=== PATIENT | female | born 1960 | race Caucasian/White ===

== ENCOUNTER 2020-08-01 15:10 | Outpatient (CLI) | payer MEDICARE, MEDICAID, SELFPAY ==
--- NOTE | ~2020-08-01 | US_ITS ---
EXAMINATION: US pelvic complete w TV DATE: 08/01/2020 15:51 INDICATION: Other specified noninflammatory disorders of the vagina. TECHNIQUE: Multiple transabdominal and transvaginal sonographic images of the pelvis were obtained. COMPARISON: None. FINDINGS: TRANSABDOMINAL ULTRASOUND: The uterus is absent. There is no free fluid in the pelvis. TRANSVAGINAL ULTRASOUND: The ovaries are absent. There is no abnormal mass. IMPRESSION: 1. No abnormal mass. 2. Absent uterus and ovaries. Reviewed, dictated and finalized at location A.
== END 2020-08-01 15:11 | disposition home or self-care (01) ==
PROVIDERS: PCP Family Medicine; Visit Provider Obstetrics & Gynecology
DX: N89.8 Other specified noninflammatory disorders of vagina (principal)
CPT/HCPCS: 76830; 76856

== ENCOUNTER 2020-08-17 14:33 | Outpatient (CLI) | payer MEDICARE, MEDICAID, SELFPAY ==
--- NOTE | ~2020-08-17 | DEXA_ITS ---
Bone Density Report Name: Kavya Regan Age: 60 Sex: Female Ethnicity: White Date of : 1960 Indication: postmenopausal; parental hip fracture; prior fracture; hysterectomy; Referring Provider: AMRIT NATHAN Study: Bone densitometry was performed. Exam Date: August 17, 2020 Accession number: [id number] Bone Density: Region BMD T-score Z-score Classification AP Spine (L1-L4) 1.045 0.0 1.5 Normal Femoral Neck (Left) 0.609 -2.2 -0.8 Osteopenia Total Hip (Left) 0.679 -2.2 -1.1 Osteopenia Total Hip Bilateral Avg 0.704 -2.0 -0.9 Osteopenia Femoral Neck (Right) 0.601 -2.2 -0.9 Osteopenia Total Hip (Right) 0.728 -1.8 -0.7 Osteopenia World Health Organization criteria for BMD impression classify patients as: Normal (T-score at or above -1.0), Osteopenia (T-score between -1.0 and -2.5), or Osteoporosis (T-score at or below -2.5). 10-year Fracture Risk(1): Major Osteoporotic Fracture 30% Hip Fracture 2.5% Reported Risk Factors: [place] (), Neck BMD=0.601, BMI=34.0, previous fracture, parental fracture (1) FRAX(R) Version 3.08. Fracture probability calculated for an untreated patient. Fracture probability may be lower if the patient has received treatment. Clinical Information Provided by Patient: Has had a low trauma fracture Parent has had a hip fracture Has used the following medications: Vitamin D, Calcium Has the following medical conditions: Hysterectomy Patient maximum height was 64.5 Menopause Age: 31 No regular weight bearing exercise Drinks caffeinated beverages Onset of menses at age 10 Number of children 0 Impression: The patient has low bone mass, based on the Left Total Hip T-score. The patient has an estimated ten-year risk of hip fracture of 2.5% and an estimated ten-year risk of major fracture of 30%, based on the WHO FRAX algorithm. The patient has risk factors, including: parental hip fracture, previous fracture. Discussion: BONE DENSITY IS LOW AT ONE OR MORE SKELETAL SITES. THE PATIENT'S BMD AND CLINICAL RISK FACTORS CONTRIBUTE TO THIS PATIENT'S INCREASED RISK OF FRACTURE. This patient's lowest T-score is low at one or more skeletal sites. It meets the World Health Organization's (WHO) criteria for ?low bone mass? (T-score between -1.0 and -2.5). The patient's 10-year risk of a major osteoporotic fracture as calculated by FRAX exceeds the threshold where pharmacological therapy is recommended by the National Osteoporosis Foundation (NOF). However, all treatment decisions require clinical judgment and consideration of individual patient factors, including patient preferences, comorbidities, previous drug use, risk factors not captured in the FRAX model (e.g., frailty, falls, vitamin D deficiency, increased bone turnover, interval significant decline in bone density) and poss
--- NOTE | ~2020-08-17 | MM_ITS ---
EXAMINATION: MM screening tata BI w luis alberto HISTORY: Screening TECHNIQUE: Craniocaudal and mediolateral oblique 3-D tomosynthesis images were obtained and synthetic 2-D images were generated. CAD analysis was submitted and interpreted. COMPARISON: No prior mammogram is available for comparison at this institution. BREAST PARENCHYMAL COMPOSITION: There are scattered areas of fibroglandular density. FINDINGS: Focal asymmetry in the subareolar location of the right breast on CC view with adjacent non specific calcifications. There is no evidence of suspicious mass, calcification, or architectural dis tortion to suggest malignancy in either breast. There has been no suspicious interval change. IMPRESSION: 1. Focal asymmetry of the right breast with adjacent nonspecific calcifications. 2. Additional mammographic views and possible breast ultrasound are recommended. BI-RADS Category 0: Incomplete: Needs additional imaging evaluation. Reviewed, dictated and finalized at location A. IMPRESSION: 1. Focal asymmetry of the right breast with adjacent nonspecific calcifications . 2. Additional mammographic views and possible breast ultrasound are recommended . BI-RADS Category 0: Incomplete: Needs additional imaging evaluation.
== END 2020-08-17 14:34 | disposition home or self-care (01) ==
LOC: ANHIMG 14:35
PROVIDERS: PCP Family Medicine; Visit Provider Obstetrics & Gynecology
DX: Z78.0 Asymptomatic menopausal state (principal); Z12.31 Encounter for screening mammogram for malignant neoplasm of breast; M85.80 Other specified disorders of bone density and structure, unspecified site
CPT/HCPCS: 77063; 77067; 77080

== ENCOUNTER → 2020-08-25 16:36 | Outpatient (CLI) | payer MEDICARE, MEDICAID, SELFPAY ==
--- NOTE | ~2020-08-25 | XR_ITS ---
EXAMINATION: XR_[id number]_CR EXAM DATE: 08/25/2020 16:59 INDICATION: Neck pain. Vascular headache. TECHNIQUE: Cervical spine frontal, lateral, lateral swimmers, and open-mouth odontoid projections. There is no prior study for comparison. FINDINGS: There is mild to moderate disc disease C4-7. There is no evidence of acute cervical fractu re. The odontoid process is intact. Pre-dens space is normal. Prevertebral soft tissue is normal. There are no soft tissue abnormalities identified. The vertebral bodies are aligned. There is cer vical facet arthropathy. IMPRESSION: Moderate cervical arthropathy, mild to moderate lower cervical disc disease. Reviewed, dictated and finalized at location A.
== END ==
PROVIDERS: PCP Family Medicine; Visit Provider Family Medicine
DX: G44.1 Vascular headache, not elsewhere classified (principal); M50.30 Other cervical disc degeneration, unspecified cervical region
CPT/HCPCS: 72040

== ENCOUNTER 2020-10-18 12:51 | Emergency (ER) | payer MEDICARE, MEDICAID, SELFPAY ==
--- NOTE | ~2020-10-18 | XR_ITS ---
[XR_RIBSLTCXR1_CR ] INDICATION: Left rib pain. TECHNIQUE: Frontal projection of the upper left ribs, frontal projection of the lower left ribs, obli que projection of all the left ribs, frontal inspiratory chest x-ray for interpretation. FINDINGS: There is an acute sixth rib fracture. Possible seventh rib fracture. There are no soft tiss ue abnormality seen. The lungs are clear. No pneumothorax identified. IMPRESSION: 1: Acute left sixth rib fracture. Reviewed, dictated and finalized at location A. R REPLACER
[2020-10-18 12:56] VITALS: BP 138/64; PULSE 55; RESP 20; TEMP 36.6; O2SAT 100
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
== END 2020-10-18 14:20 | disposition home or self-care (01) ==
PROVIDERS: Emergency Provider Registered Nurse; PCP Family Medicine
DX: S22.32XA Fracture of one rib, left side, initial encounter for closed fracture (principal); X58.XXXA Exposure to other specified factors, initial encounter; K21.9 Gastro-esophageal reflux disease without esophagitis; Z86.73 Personal history of transient ischemic attack (TIA), and cerebral infarction without residual deficits; E03.9 Hypothyroidism, unspecified; F31.9 Bipolar disorder, unspecified
CPT/HCPCS: 71101; 99213; G0463

== ENCOUNTER 2020-11-29 14:38 | Outpatient (CLI) | payer MEDICARE, MEDICAID, SELFPAY ==
--- NOTE | ~2020-11-29 | XR_ITS ---
XR_RIBSBICXR1_CR DATE: 11/29/2020 15:13 INDICATION: Left rib fracture follow-up TECHNIQUE: PA chest. Multiple views of left and right ribs. COMPARISON: 10/18/2020 left ribs FINDINGS: Normal heart size. No hilar or mediastinal enlargement. No pulmonary infiltrate or consolid ation, pleural effusion or pulmonary vascular congestion or pneumothorax. There is some callus formation associated with the minimally displaced anterior left sixth rib fractu re consistent with healing. No other rib fracture is evident. Diffuse osteopenia. Old healed right surgical neck fracture of the right humerus. Osteoarthritis at the glenohumeral joints, greater on the left. Diffuse idiopathic skeletal hyperosto sis of the thoracic and upper lumbar spine. Status post cholecystectomy. IMPRESSION: Healing anterior left sixth rib fracture Diffuse idiopathic skeletal hyperostosis of the thoracolumbar spine Reviewed, dictated and finalized at Location A. Reviewed, dictated and finalized at location A. IER ARTIST
== END 2020-11-29 14:39 | disposition home or self-care (01) ==
LOC: ANHBWCIMG 14:42
PROVIDERS: PCP Family Medicine; Visit Provider Family Medicine
DX: M84.48XA Pathological fracture, other site, initial encounter for fracture (principal); Z90.49 Acquired absence of other specified parts of digestive tract
CPT/HCPCS: 71111

== ENCOUNTER 2021-02-24 12:05 | Outpatient (CLI) | payer MEDICARE, MEDICAID, SELFPAY ==
[2021-02-24 17:38] LABS: Add Urine Microscopic? YES; Appearance Urine Cloudy (Clear); Bilirubin Urine Negative (Negative); Blood Urine Negative (Negative); Color Urine Amber (Yellow); Glucose Urine UA Negative (Negative); Hyaline Casts Urine 50+ /lpf; Ketones Urine Negative (Negative); Leukocyte Esterase Ur Negative LEU/UL (NEGATIVE); Mucus Urine Few /lpf; Nitrate Urine Negative (Negative); Protein Urine 1+ mg/dL (Negative); Specific Grav Ur 1.023 (1.001-1.035); Squamous Epithelial Cell Urine Moderate /hpf (Few); Transitional Epi Cells Urine Rare /hpf (None Seen); Urobilinogen Urine Negative mg/dL (<2.0)
== END 2021-02-24 12:06 | disposition home or self-care (01) ==
PROVIDERS: PCP Family Medicine; Visit Provider Family Medicine
DX: M54.9 Dorsalgia, unspecified (principal); R10.9 Unspecified abdominal pain
CPT/HCPCS: 81001; 87077; 87086; 87088; 87186

== ENCOUNTER 2021-03-03 17:24 | Emergency (ER) | payer MEDICARE, MEDICAID, SELFPAY ==
--- NOTE | ~2021-03-03 | XR_ITS ---
EXAMINATION: XR chest 2V DATE: 03/03/2021 18:40 INDICATION: Upper abdominal pain. TECHNIQUE: PA and lateral views of the chest were obtained. COMPARISON: Chest radiograph dated 11/29/2020 FINDINGS: The lungs are clear with no focal airspace opacities, pulmonary edema, pleural effusion or pneumothor ax. The cardiomediastinal silhouette is normal. There are bridging osteophytes at multiple levels in the spine, consistent with diffuse idiopathic skeletal hyperostosis (DISH). Chronic mild anterior wed ging of a few lower thoracic vertebral bodies. Old healed bilateral humeral neck fractures. Small miya cific density near the apex of the right humeral head suggestive of rotator cuff calcific tendinitis. Cholecystectomy clips in the upper abdomen. IMPRESSION: 1. No acute cardiopulmonary disease. Reviewed, dictated and finalized at location A.
--- NOTE | ~2021-03-03 | CT_ITS ---
EXAMINATION: CT abdomen pelvis w con DATE: 03/03/2021 19:19 INDICATION: Upper abdominal pain TECHNIQUE: Computed tomography (CT) of the abdomen and pelvis was performed with 100 mL Omnipaque-350 intravenous contrast. Automated exposure control and iterative reconstruction technique were employe d. The dose-length product was 901.87 mGy-cm. COMPARISON: None FINDINGS: Lung bases are clear. Heart size is normal. No pericardial effusion. Small sliding-type hiatal hernia with change of prior Cricket-en-Y gastric bypass procedure. Cholecystectomy clips the gallbladder fossa . Liver, spleen, pancreas and bilateral adrenal glands are normal. 1.4 cm cyst at the upper pole of t he right kidney. Small focus of cortical scarring at the upper pole of the left kidney. There is mild colonic diverticulosis with a sigmoid predominance. There is no adjacent inflammatory change to sugg est diverticulitis. The appendix is not visualized. No pericecal inflammatory change to suggest acute appendicitis. No bowel obstruction. Bladder is normal. The uterus is not identified and has likely b een surgically resected. No free intraperitoneal gas or fluid. No pathologically enlarged abdominal o r pelvic lymphadenopathy. There are bridging osteophytes at multiple levels in the spine, consistent with diffuse idiopathic skeletal hyperostosis (DISH). IMPRESSION: 1. No acute intra-abdominal/pelvic process. 2. Small sliding-type hiatal hernia with prior Cricket-en-Y gastric bypass procedure. Reviewed, dictated and finalized at location A. IMPRESSION: 1. No acute intra-abdominal/pelvic process. 2. Small sliding-type hiatal hernia with prior Cricket-en-Y gastric bypass procedu re.
[2021-03-03 17:29] VITALS: BP 147/95; PULSE 75; RESP 20; TEMP 36.6; O2SAT 98
--- NOTE | 2021-03-03 18:07 | ECG_ITS ---
Measurements Intervals [place] Rate: 64 P: 40 UT: 177 QRS: 15 QRSD: 91 T: 55 QT: 411 QTc: 426 Interpretive Statements SINUS RHYTHM BASELINE WANDER- I, III NORMAL ECG Electronically Signed On 03-03-2021 19:30:51 CDT by Greg Aggarwal D.O.
[2021-03-03 18:13] LABS: Basophils Percent Auto 0.4 % (0.2-1.2); Eosinophils Absolute Auto 0.1 K/mm3 (0-0.3); Eosinophils Percent Auto 0.9 % (0-4.4); Hematocrit 41.4 % (37.0-47.0); Hemoglobin 13.9 g/dL (12.0-15.0); Immature Granulocyte Absolute 0.02 K/mm3 (0.00-0.031); Immature Granulocyte Percent A 0.4 % (0-0.5); Lymphocytes Absolute Auto 1.81 K/mm3 (0.9-3.2); Lymphocytes Percent Auto 32.2 % (18.3-44.2); Mean Corpuscular HGB Conc 33.6 g/dl (32-36); Mean Corpuscular Volume 86.4 fl (80-100); Mean Platelet Volume 10.1 fl (7.4-10.4); Monocytes Absolute Auto 0.5 K/mm3 (0.1-0.6); Monocytes Percent Auto 8.4 % (2.6-8.5); Neutrophils Absolute Auto 3.3 K/mm3 (1.3-6.7); Neutrophils Percent Auto 57.7 % (45.5-73.1); Platelet Count Result 249 k/mm3 (150-375); Red Blood Count 4.79 M/mm3 (4.2-5.4); Red Cell Distribution Width 13.1 % (11.5-14.5); White Blood Count 5.6 K/mm3 (4.5-10.0)
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
[2021-03-03 18:22] LABS: Add Urine Microscopic? YES; Appearance Urine Clear (Clear); Bilirubin Urine Negative (Negative); Blood Urine Negative (Negative); Color Urine Yellow (Yellow); Glucose Urine UA Negative (Negative); Ketones Urine Negative (Negative); Leukocyte Esterase Ur Negative LEU/UL (Negative); Mucus Urine Rare /lpf; Nitrate Urine Negative (Negative); Protein Urine Negative (Negative); RBC Urine 0-2 /hpf (0-2); Specific Grav Ur 1.009 (1.001-1.035); Squamous Epithelial Cell Urine Occasional /hpf (Few); Urobilinogen Urine Negative mg/dL (<2.0); WBC Urine 0-3 /hpf
[2021-03-03 18:23] LABS: INR 0.9; Partial Thromboplastin Time 22.2 SECONDS (22.3-36.8); Prothrombin Time 12.2 Seconds (11.1-14.7)
[2021-03-03] MEDS: METOCLOPRAMIDE HCL INJ 10 MG/2 ML VIAL IV PUSH (18:23)
[2021-03-03] MEDS: diphenhydrAMINE HCl INJ 50 MG/ML VIAL 25 MG IV PUSH (18:23)
[2021-03-03] MEDS: FAMOTIDINE 20 MG/2 ML VIAL IV PUSH (18:24)
[2021-03-03 18:31] LABS: Alanine Aminotransferase 17 U/L (4-35); Albumin Level 4.7 g/dL (3.5-5.1); Alkaline Phosphatase 80 U/L (38-126); Anion Gap 6 mmol/L (8-16); Aspartate Amino Transferase 28 U/L (14-36); Bilirubin,Total 0.5 mg/dL (0.2-1.3); Blood Urea Nitrogen 8 mg/dL (7-17); Calcium 9.2 mg/dL (8.4-10.2); Carbon Dioxide 28 mmol/L (22-30); Chloride 97 mmol/L (98-107); Estimated CRCL calculation 68 ml/min; Estimated Glomerular Filt Rate > 60; Glucose 119 mg/dL (65-105); Lipase 1597 U/L (23-300); Sodium 131 mmol/L (137-145)
[2021-03-03 18:38] LABS: Troponin I < 0.012 ng/mL (0.000-0.034)
[2021-03-03 18:40] LABS: Ethanol < 10 mg/dL (<10)
[2021-03-03] MEDS: SODIUM CHLORIDE 0.9% IV 1,000 ML 999 ML IV CONT ×2 (18:44→20:15)
[2021-03-03 18:50] LABS: Amphetamine Screen Urine Negative (Negative); Barbiturate Screen Urine Negative (Negative); Benzodiazepines Screen Urine Negative (Negative); Cannabinoid Screen Urine Negative (Negative); Cocaine Screen Urine Negative (Negative); Methadone Screen Urine Negative (Negative); Opiate Screen Urine Negative (Negative); Phencyclidine Screen Urine Negative (Negative)
[2021-03-03 19:36] VITALS: BP 155/68; PULSE 64; RESP 16; O2SAT 100
[2021-03-03] MEDS: ONDANSETRON INJ 4 MG/2 ML VIAL IV PUSH (20:11)
[2021-03-03] MEDS: MORPHINE SULFATE (*CRX) 4 MG/ML INJ IV PUSH (20:13)
[2021-03-03 20:15] LABS: Triglycerides 177 mg/dL (<150)
[2021-03-03 21:30] VITALS: BP 136/76; PULSE 60; RESP 16; O2SAT 98
== END 2021-03-03 21:35 | disposition home or self-care (01) ==
PROVIDERS: Physician Assistant; Emergency Provider Emergency Medicine; PCP Family Medicine
DX: K85.30 Drug induced acute pancreatitis without necrosis or infection (principal); T36.8X5A Adverse effect of other systemic antibiotics, initial encounter; K21.9 Gastro-esophageal reflux disease without esophagitis; N39.0 Urinary tract infection, site not specified; F31.9 Bipolar disorder, unspecified; Z86.73 Personal history of transient ischemic attack (TIA), and cerebral infarction without residual deficits; E03.9 Hypothyroidism, unspecified; Z96.651 Presence of right artificial knee joint; Z87.891 Personal history of nicotine dependence; Z98.84 Bariatric surgery status; K44.9 Diaphragmatic hernia without obstruction or gangrene; Z79.899 Other long term (current) drug therapy
CPT/HCPCS: 36415; 71046; 74177; 80053; 80307; 81001; 83690; 84443; 84478; 84484; 85025; 85610; 85730; 93005; 96361; 96374; 96375; 99284; J0131; J1200; J2270; J2405; J2765; J7030; Q9967

== ENCOUNTER → 2021-05-12 16:38 | Outpatient (CLI) | payer MEDICARE, MEDICAID, SELFPAY ==
--- NOTE | ~2021-05-12 | XR_ITS ---
[XR ribs LT 2V w CXR 2V ] INDICATION: Left chest pain TECHNIQUE: Frontal projection of the upper left ribs, frontal projection of the lower left ribs, obli que projection of all the left ribs, frontal inspiratory chest x-ray for interpretation. FINDINGS: There are nondisplaced left fifth and sixth rib fractures anteriorly. Possible nondisplace d left fourth rib fracture anteriorly. There are no soft tissue abnormality seen. The lungs are saray r. There is thoracic spondylosis. There are cholecystectomy clips. There is moderate osteoarthritis of the left shoulder. IMPRESSION: 1: Left fifth, sixth and possibly fourth rib fractures, age indeterminate. Reviewed, dictated and finalized at location A.
--- NOTE | ~2021-05-12 | XR_ITS ---
XR knee LT min 4V 05/12/2021 17:16 Indication: Left knee pain after work Procedure: 4 views left knee Comparison: No prior studies for comparison. Findings: No acute fracture is identified. There is a moderate joint effusion. There are loose bodies posterior to the joint space. There is an old lateral tibial plateau fracture. There are possible ol d patellar fracture superiorly versus multi partite patella. There is side plate and screws transfixi ng the proximal tibia. Impression: 1: No acute fracture. 2: Moderate joint effusion. Reviewed, dictated and finalized at location A. Impression: 1: No acute fracture. 2: Moderate joint effusion.
== END ==
PROVIDERS: PCP Family Medicine; Visit Provider Family Medicine
DX: S22.39XA Fracture of one rib, unspecified side, initial encounter for closed fracture (principal); M25.562 Pain in left knee; S22.42XA Multiple fractures of ribs, left side, initial encounter for closed fracture; M25.462 Effusion, left knee
CPT/HCPCS: 71046; 71100; 73564

== ENCOUNTER 2021-06-16 11:48 | Outpatient (CLI) | payer MEDICARE, MEDICAID, SELFPAY ==
[2021-06-16 19:30] LABS: Basophils Percent Auto 0.4 % (0.2-1.2); Eosinophils Absolute Auto 0.1 K/mm3 (0-0.3); Eosinophils Percent Auto 1.3 % (0-4.4); Hemoglobin 12.2 g/dL (12.0-15.0); Immature Granulocyte Absolute 0.02 K/mm3 (0.00-0.031); Immature Granulocyte Percent A 0.3 % (0-0.5); Lymphocytes Absolute Auto 1.39 K/mm3 (0.9-3.2); Lymphocytes Percent Auto 20.4 % (18.3-44.2); Mean Corpuscular HGB Conc 31.3 g/dl (32-36); Mean Corpuscular Volume 92.9 fl (80-100); Mean Platelet Volume 11.2 fl (7.4-10.4); Monocytes Absolute Auto 0.4 K/mm3 (0.1-0.6); Monocytes Percent Auto 6.4 % (2.6-8.5); Neutrophils Absolute Auto 4.9 K/mm3 (1.3-6.7); Neutrophils Percent Auto 71.2 % (45.5-73.1); Platelet Count Result 236 k/mm3 (150-375); Red Cell Distribution Width 12.6 % (11.5-14.5); White Blood Count 6.8 K/mm3 (4.5-10.0)
[2021-06-16 19:36] LABS: Alanine Aminotransferase 31 U/L (4-35); Albumin Level 3.5 g/dL (3.5-5.1); Alkaline Phosphatase 76 U/L (38-126); Anion Gap 6 mmol/L (8-16); Aspartate Amino Transferase 39 U/L (14-36); Bilirubin,Total 0.3 mg/dL (0.2-1.3); Blood Urea Nitrogen 12 mg/dL (7-17); Calcium 9.2 mg/dL (8.4-10.2); Carbon Dioxide 25 mmol/L (22-30); Chloride 107 mmol/L (98-107); Estimated Glomerular Filt Rate > 60; Glucose 94 mg/dL (65-110); Potassium 3.6 mmol/L (3.4-5.0); Sodium 138 mmol/L (137-145)
[2021-06-16 20:06] LABS: Thyroid Stimulating Hormone 0.766 uIU/mL (0.465-4.680)
[2021-06-16 20:33] LABS: Hemoglobin A1C 5.6 % (<5.7)
== END 2021-06-16 11:49 | disposition home or self-care (01) ==
PROVIDERS: PCP Family Medicine; Visit Provider Family Medicine
DX: E03.9 Hypothyroidism, unspecified (principal); F32.9 Major depressive disorder, single episode, unspecified; R73.09 Other abnormal glucose
CPT/HCPCS: 36415; 80053; 83036; 84443; 85025

== ENCOUNTER 2021-07-18 07:34 | Outpatient (CLI) | payer MEDICARE, MEDICAID, SELFPAY ==
[2021-07-18 20:15] LABS: Hematocrit 38.7 % (37.0-47.0); Hemoglobin 12.5 g/dL (12.0-15.0); Mean Corpuscular HGB Conc 32.3 g/dl (32-36); Mean Corpuscular Hemoglobin 29.8 pg (26-34); Mean Corpuscular Volume 92.1 fl (80-100); Platelet Count Result 216 k/mm3 (150-375); Red Cell Distribution Width 13.2 % (11.5-14.5); White Blood Count 6.3 K/mm3 (4.5-10.0)
[2021-07-18 20:23] LABS: Alanine Aminotransferase 10 U/L (4-35); Albumin Level 3.7 g/dL (3.5-5.1); Alkaline Phosphatase 83 U/L (38-126); Anion Gap 10 mmol/L (8-16); Aspartate Amino Transferase 16 U/L (14-36); Bilirubin,Total 0.4 mg/dL (0.2-1.3); Blood Urea Nitrogen 12 mg/dL (7-17); Calcium 9.1 mg/dL (8.4-10.2); Carbon Dioxide 28 mmol/L (22-30); Chloride 104 mmol/L (98-107); Estimated Glomerular Filt Rate > 60; Glucose 114 mg/dL (65-110); Potassium 3.5 mmol/L (3.4-5.0); Sodium 142 mmol/L (137-145)
== END 2021-07-18 07:35 | disposition home or self-care (01) ==
PROVIDERS: PCP Family Medicine; Visit Provider Family Medicine
DX: G25.81 Restless legs syndrome (principal); M79.2 Neuralgia and neuritis, unspecified; R73.09 Other abnormal glucose; Z51.81 Encounter for therapeutic drug level monitoring; Z79.899 Other long term (current) drug therapy; E03.9 Hypothyroidism, unspecified; R79.89 Other specified abnormal findings of blood chemistry
CPT/HCPCS: 36415; 80053; 84443; 85027

== ENCOUNTER 2022-01-02 10:46 | Outpatient (CLI) | payer MEDICARE, MEDICAID, SELFPAY ==
--- NOTE | ~2022-01-02 | XR_ITS ---
XR knee LT min 4V DATE: 01/02/2022 11:08 INDICATION: Twisting injury. Pain. TECHNIQUE: 4 views COMPARISON: 05/12/2021 left knee FINDINGS: Diffuse osteopenia. There is a plate along the proximal tibia extending from the lateral tibial plateau to proximal later al tibial shaft, with multiple transverse compression screws. There is severe osteoarthritic change at the patellofemoral and lateral compartments, previously plac ed for repair of lateral tibial plateau fracture, with some chronic residual depression and cupping d eformity of the lateral tibial plateau articular surface. There is old healed fracture deformity of t he fibular neck. Again noted is a large posterior knee joint calcified loose body. No recent fracture or dislocation is evident. IMPRESSION: Old healed internally fixated lateral tibial plateau and fibular neck fracture deformitie s Osteopenia Prominent osteoarthritis involving particularly the lateral and patellofemoral compartments Reviewed, dictated and finalized at location A. LINER MAKER IMPRESSION: Old healed internally fixated lateral tibial plateau and fibular ne ck fracture deformities Osteopenia Prominent osteoarthritis involving particularly the lateral and patellofemoral compartments
== END 2022-01-02 10:47 | disposition home or self-care (01) ==
LOC: ANHBWCIMG 10:51
PROVIDERS: PCP Family Medicine; Visit Provider Family Medicine
DX: M17.12 Unilateral primary osteoarthritis, left knee (principal); Z98.890 Other specified postprocedural states; M85.862 Other specified disorders of bone density and structure, left lower leg
CPT/HCPCS: 73564

== ENCOUNTER 2022-07-31 15:18 | Outpatient (CLI) | payer MEDICARE, MEDICAID, SELFPAY ==
[2022-07-31 19:55] LABS: Alanine Aminotransferase 14 U/L (6-35); Albumin Level 3.9 g/dL (3.5-5.1); Alkaline Phosphatase 82 U/L (38-126); Anion Gap 9 mmol/L (8-16); Aspartate Amino Transferase 35 U/L (14-36); Bilirubin,Total 0.4 mg/dL (0.2-1.3); Blood Urea Nitrogen 9 mg/dL (7-17); Calcium 8.5 mg/dL (8.4-10.2); Carbon Dioxide 26 mmol/L (22-30); Chloride 99 mmol/L (98-107); Cholesterol 185 mg/dL (0-200); Estimated Glomerular Filt Rate > 60; Glucose 98 mg/dL (65-110); HDL Direct 46 mg/dL; Potassium 4.3 mmol/L (3.4-5.0); Sodium 134 mmol/L (137-145); Triglycerides 114 mg/dL (<150)
[2022-07-31 20:05] LABS: LDL Cholesterol Direct 110 mg/dL
[2022-07-31 20:20] LABS: Basophils Percent Auto 0.4 % (0.2-1.2); Eosinophils Percent Auto 0.7 % (0-4.4); Hematocrit 39.3 % (37.0-47.0); Hemoglobin 12.4 g/dL (12.0-15.0); Immature Granulocyte Absolute 0.01 K/mm3 (0.00-0.031); Immature Granulocyte Percent A 0.2 % (0-0.5); Lymphocytes Absolute Auto 1.29 K/mm3 (0.9-3.2); Mean Corpuscular HGB Conc 31.6 g/dl (32-36); Mean Corpuscular Hemoglobin 28.8 pg (26-34); Mean Corpuscular Volume 91.2 fl (80-100); Mean Platelet Volume 10.6 fl (7.4-10.4); Monocytes Absolute Auto 0.3 K/mm3 (0.1-0.6); Monocytes Percent Auto 5.8 % (2.6-8.5); Neutrophils Absolute Auto 2.8 K/mm3 (1.3-6.7); Neutrophils Percent Auto 63.9 % (45.5-73.1); Platelet Count Result 237 k/mm3 (150-375); Red Blood Count 4.31 M/mm3 (4.2-5.4); Red Cell Distribution Width 13.2 % (11.5-14.5); White Blood Count 4.5 K/mm3 (4.5-10.0)
[2022-07-31 20:24] LABS: Vitamin D 25 Hydroxy 48.9 ng/mL
== END 2022-07-31 15:19 | disposition home or self-care (01) ==
LOC: ANHBWCLAB 15:19
PROVIDERS: PCP Family Medicine; Visit Provider Family Medicine
DX: G44.1 Vascular headache, not elsewhere classified (principal); E03.9 Hypothyroidism, unspecified; E66.9 Obesity, unspecified; F32.9 Major depressive disorder, single episode, unspecified; G25.81 Restless legs syndrome; Z79.899 Other long term (current) drug therapy
CPT/HCPCS: 36415; 80053; 80061; 82306; 82607; 84443; 85025

== ENCOUNTER 2022-09-29 10:01 | Emergency (ER) | payer MEDICARE, MEDICAID, SELFPAY ==
[2022-09-29 10:09] VITALS: BP 132/54; PULSE 73; RESP 16; TEMP 36.6; O2SAT 99
--- NOTE | 2022-09-29 10:10 | PC.NURSE ---
PT ASKING FOR RAPID COVID TEST TO RETURN TO WORK AND REPORTS NO SYMPTOMS. PT DECIDES NOT TO WAIT TO BE SEEN AND WILL GO TO COVID TESTING SITE.
--- NOTE | 2022-09-29 10:10 | PC.NURSE ---
PT IS REQUESTING TO HAVE A RAPID COVID TEST DONE TO GO BACK TO WORK AND DOES NOT WANT TO WAIT.
== END 2022-09-29 10:10 | disposition left against medical advice (07) ==
LOC: EXPBETH 10:05
PROVIDERS: Emergency Provider Registered Nurse; PCP Family Medicine
DX: Z53.21 Procedure and treatment not carried out due to patient leaving prior to being seen by health care provider (principal)
CPT/HCPCS: 99199

== ENCOUNTER 2022-12-11 13:16 | Outpatient (CLI) | payer MEDICARE, MEDICAID, SELFPAY ==
--- NOTE | ~2022-12-11 | XR_ITS ---
Left Knee Technique: AP, lateral, and sunrise views were obtained. Clinical History: Pain COMPARISON: 01/02/2022 Findings: No acute fracture or dislocation seen. Old, healed fracture of the proximal tibia with stab le compression plate and interlocking screws along the proximal, lateral tibia. Moderate lateral and patellofemoral compartment degenerative change present. Mild degenerative change of the medial compar tment present. There is a 2 cm loose body present posteriorly in the joint, similar to prior exam. No joint effusion is seen. Impression: No acute abnormality. Stable orthopedic fixation hardware the proximal tibia. Stable degenerative change of the knee, worst in the lateral and patellofemoral compartments. Stable large intra-articular loose body. Reviewed, dictated and finalized at location . RAFT STEEL FABRICATOR Impression: No acute abnormality. Stable orthopedic fixation hardware the proximal tibia. Stable degenerative change of the knee, worst in the lateral and patellofemoral compartments. Stable large intra-articular loose body.
== END 2022-12-11 13:17 | disposition home or self-care (01) ==
PROVIDERS: PCP Family Medicine; Visit Provider Family Medicine
DX: M25.562 Pain in left knee (principal); M23.42 Loose body in knee, left knee
CPT/HCPCS: 73562

== ENCOUNTER 2023-01-03 11:27 | Outpatient (CLI) | payer MEDICARE, MEDICAID, SELFPAY ==
[2023-01-03 19:34] LABS: Alanine Aminotransferase 28 U/L (6-35); Albumin Level 3.6 g/dL (3.5-5.1); Alkaline Phosphatase 112 U/L (38-126); Anion Gap 3 mmol/L (8-16); Aspartate Amino Transferase 39 U/L (14-36); Bilirubin,Total 0.5 mg/dL (0.2-1.3); Blood Urea Nitrogen 8 mg/dL (7-17); Calcium 8.2 mg/dL (8.4-10.2); Carbon Dioxide 32 mmol/L (22-30); Chloride 103 mmol/L (98-107); Estimated Glomerular Filt Rate > 60; Glucose 77 mg/dL (65-110); Potassium 4.1 mmol/L (3.4-5.0); Sodium 138 mmol/L (137-145)
[2023-01-03 21:10] LABS: Hematocrit 34.8 % (37.0-47.0); Hemoglobin 10.4 g/dL (12.0-15.0); Mean Corpuscular HGB Conc 29.9 g/dl (32-36); Mean Corpuscular Hemoglobin 26.7 pg (26-34); Mean Corpuscular Volume 89.2 fl (80-100); Mean Platelet Volume 10.9 fl (7.4-10.4); Platelet Count Result 228 k/mm3 (150-375); Red Cell Distribution Width 13.7 % (11.5-14.5); White Blood Count 4.3 K/mm3 (4.5-10.0)
== END 2023-01-03 11:28 | disposition home or self-care (01) ==
LOC: ANHBWCLAB 11:28
PROVIDERS: PCP Family Medicine; Visit Provider Family Medicine
DX: F25.9 Schizoaffective disorder, unspecified (principal); F31.81 Bipolar II disorder; G25.81 Restless legs syndrome; M79.2 Neuralgia and neuritis, unspecified; M25.562 Pain in left knee; M85.80 Other specified disorders of bone density and structure, unspecified site; R79.89 Other specified abnormal findings of blood chemistry; E66.9 Obesity, unspecified; E03.9 Hypothyroidism, unspecified; Z79.899 Other long term (current) drug therapy
CPT/HCPCS: 36415; 80053; 84443; 85027

== ENCOUNTER 2023-01-31 11:58 | Outpatient (CLI) | payer MEDICARE, MEDICAID, SELFPAY ==
[2023-01-31 18:47] LABS: Iron 46 ug/dL (37-170)
[2023-01-31 19:08] LABS: Percent Iron Saturation 9 % (20-50)
[2023-01-31 19:28] LABS: Basophils Percent Auto 0.2 % (0.2-1.2); Eosinophils Percent Auto 0.2 % (0-4.4); Hematocrit 38.3 % (37.0-47.0); Hemoglobin 11.5 g/dL (12.0-15.0); Immature Granulocyte Absolute 0.02 K/mm3 (0.00-0.031); Immature Granulocyte Percent A 0.4 % (0-0.5); Lymphocytes Absolute Auto 1.13 K/mm3 (0.9-3.2); Lymphocytes Percent Auto 20.2 % (18.3-44.2); Mean Corpuscular Hemoglobin 26.8 pg (26-34); Mean Corpuscular Volume 89.3 fl (80-100); Mean Platelet Volume 10.2 fl (7.4-10.4); Monocytes Absolute Auto 0.5 K/mm3 (0.1-0.6); Monocytes Percent Auto 8.2 % (2.6-8.5); Neutrophils Percent Auto 70.8 % (45.5-73.1); Platelet Count Result 289 k/mm3 (150-375); Red Blood Count 4.29 M/mm3 (4.2-5.4); Red Cell Distribution Width 14.3 % (11.5-14.5); White Blood Count 5.6 K/mm3 (4.5-10.0)
[2023-01-31 19:36] LABS: Ferritin 9.03 ng/mL (11.1-264)
== END 2023-01-31 11:59 | disposition home or self-care (01) ==
PROVIDERS: PCP Family Medicine; Visit Provider Family Medicine
DX: D64.9 Anemia, unspecified (principal); Z79.899 Other long term (current) drug therapy; R79.89 Other specified abnormal findings of blood chemistry
CPT/HCPCS: 36415; 82607; 82728; 83540; 83550; 85025

== ENCOUNTER 2023-03-27 16:57 | Emergency (ER) | payer MEDICARE, MEDICAID, SELFPAY ==
[2023-03-27 17:07] VITALS: BP 89/57; PULSE 98; RESP 18; TEMP 37.1; O2SAT 99
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
[2023-03-27 17:30] VITALS: BP 116/68; PULSE 84
[2023-03-27 17:31] VITALS: BP 115/63; PULSE 96
[2023-03-27 17:32] VITALS: BP 70/47; PULSE 100
[2023-03-27 17:40] VITALS: BP 115/68
--- NOTE | 2023-03-27 20:16 | ECG_ITS ---
Measurements Intervals [place] Rate: 86 P: [place]: 0 QRS: 48 QRSD: 94 T: 56 QT: 360 QTc: 432 Interpretive Statements ATRIAL FIBRILLATION BASELINE ARTIFACT- I, II, III ABNORMAL ECG COMPARED TO ECG 03/03/2021 18:16:32 ATRIAL FIBRILLATION NOW PRESENT Electronically Signed On 03-28-2023 8:07:34 CDT by Greg Aggarwal D.O.
== END 2023-03-27 17:40 | disposition left against medical advice (07) ==
PROVIDERS: Emergency Provider Nurse Practitioner Family; PCP Family Medicine
DX: I48.91 Unspecified atrial fibrillation (principal); M25.561 Pain in right knee; Z87.891 Personal history of nicotine dependence; K21.9 Gastro-esophageal reflux disease without esophagitis; E03.9 Hypothyroidism, unspecified; Z86.73 Personal history of transient ischemic attack (TIA), and cerebral infarction without residual deficits; Z96.651 Presence of right artificial knee joint
CPT/HCPCS: 93005; 99213; G0463

== ENCOUNTER 2023-04-08 10:09 | Outpatient (CLI) | payer OTHER, SELFPAY ==
--- NOTE | ~2023-04-08 | XR_ITS ---
Right Knee Technique: AP, lateral, and sunrise views were obtained. Clinical History: Pain Findings: No fracture or dislocation is seen., Right knee arthroplasty hardware is in place. No hardw are complication is evident. There is prominent heterotopic ossification or possibly loose body poste rior to the distal femoral hardware.. No joint effusion is seen. Impression: No acute reality evident. Prominent heterotopic ossification or possible loose body posterior to the distal femoral hardware. Right knee arthroplasty hardware in place. Reviewed, dictated and finalized at location M. Impression: No acute reality evident. Prominent heterotopic ossification or possible loose body posterior to the dist al femoral hardware. Right knee arthroplasty hardware in place.
[2023-04-08 21:41] LABS: Basophils Percent Auto 0.4 % (0.2-1.2); Eosinophils Percent Auto 0.9 % (0-4.4); Hematocrit 39.1 % (37.0-47.0); Hemoglobin 11.9 g/dL (12.0-15.0); Immature Granulocyte Absolute 0.02 K/mm3 (0.00-0.031); Immature Granulocyte Percent A 0.4 % (0-0.5); Lymphocytes Absolute Auto 0.71 K/mm3 (0.9-3.2); Lymphocytes Percent Auto 15.7 % (18.3-44.2); Mean Corpuscular HGB Conc 30.4 g/dl (32-36); Mean Corpuscular Hemoglobin 27.1 pg (26-34); Mean Corpuscular Volume 89.1 fl (80-100); Mean Platelet Volume 10.6 fl (7.4-10.4); Monocytes Absolute Auto 0.2 K/mm3 (0.1-0.6); Monocytes Percent Auto 5.1 % (2.6-8.5); Neutrophils Absolute Auto 3.5 K/mm3 (1.3-6.7); Neutrophils Percent Auto 77.5 % (45.5-73.1); Platelet Count Result 290 k/mm3 (150-375); Red Blood Count 4.39 M/mm3 (4.2-5.4); Red Cell Distribution Width 15.9 % (11.5-14.5); White Blood Count 4.5 K/mm3 (4.5-10.0)
[2023-04-08 21:48] LABS: Iron 99 ug/dL (37-170)
[2023-04-08 21:58] LABS: Percent Iron Saturation 23 % (20-50)
== END 2023-04-08 10:10 | disposition home or self-care (01) ==
LOC: ANHBWCIMG 10:10
PROVIDERS: PCP Family Medicine; Visit Provider Family Medicine
DX: M25.561 Pain in right knee (principal); E03.9 Hypothyroidism, unspecified; F31.81 Bipolar II disorder; I48.91 Unspecified atrial fibrillation; R45.851 Suicidal ideations; R53.83 Other fatigue
CPT/HCPCS: 36415; 73562; 82607; 83540; 83550; 84443; 85025

== ENCOUNTER 2023-05-06 14:01 | Outpatient (CLI) | payer OTHER, SELFPAY ==
--- NOTE | ~2023-05-06 | XR_ITS ---
EXAMINATION: XR chest 2V DATE: 05/06/2023 14:12 INDICATION: Acute sinusitis TECHNIQUE: PA and lateral views of the chest were obtained. COMPARISON: Chest radiograph dated 05/12/2021 FINDINGS: The lungs remain clear with no focal airspace opacities, pulmonary edema, pleural effusion or pneumot horax. The cardiomediastinal silhouette is normal. Dystrophic calcific lesion along the right humeral head suggestive of calcific tendinitis. At least moderate osteoarthritis at the left glenohumeral checo int. Chronic mild anterior wedging of a lower thoracic vertebral body. There are bridging osteophytes at multiple levels in the thoracic spine consistent with diffuse idiopathic skeletal hyperostosis (D RHIANNA). Likely cholecystectomy clips in the right upper quadrant. IMPRESSION: 1. No acute cardiopulmonary disease. Reviewed, dictated and finalized at location B.
== END 2023-05-06 14:02 | disposition home or self-care (01) ==
LOC: ANHBWCLAB 14:04 → ANHBWCIMG 14:06
PROVIDERS: PCP Family Medicine; Visit Provider Family Medicine
DX: J01.90 Acute sinusitis, unspecified (principal); R09.89 Other specified symptoms and signs involving the circulatory and respiratory systems
CPT/HCPCS: 71046

== ENCOUNTER 2023-06-03 14:30 | Outpatient (CLI) | payer OTHER, SELFPAY ==
[2023-06-03 19:07] LABS: Hematocrit 35.9 % (37.0-47.0); Hemoglobin 11.4 g/dL (12.0-15.0); Mean Corpuscular HGB Conc 31.8 g/dl (32-36); Mean Corpuscular Hemoglobin 28.4 pg (26-34); Mean Corpuscular Volume 89.3 fl (80-100); Mean Platelet Volume 10.8 fl (7.4-10.4); Platelet Count Result 238 k/mm3 (150-375); Red Blood Count 4.02 M/mm3 (4.2-5.4); Red Cell Distribution Width 14.8 % (11.5-14.5); White Blood Count 5.3 K/mm3 (4.5-10.0)
[2023-06-03 19:25] LABS: Alanine Aminotransferase 19 U/L (6-35); Albumin Level 3.7 g/dL (3.5-5.1); Alkaline Phosphatase 104 U/L (38-126); Anion Gap 6 mmol/L (8-16); Aspartate Amino Transferase 41 U/L (14-36); Bilirubin,Total 0.3 mg/dL (0.2-1.3); Blood Urea Nitrogen 16 mg/dL (7-17); Calcium 8.4 mg/dL (8.4-10.2); Carbon Dioxide 25 mmol/L (22-30); Chloride 105 mmol/L (98-107); Estimated Glomerular Filt Rate > 60; Glucose 75 mg/dL (65-110); Potassium 3.5 mmol/L (3.4-5.0); Sodium 136 mmol/L (137-145)
[2023-06-03 19:37] LABS: T4 Thyroxine 8.66 ug/dL (5.53-11.0)
[2023-06-03 20:20] LABS: Iron 79 ug/dL (37-170)
[2023-06-03 20:29] LABS: Percent Iron Saturation 18 % (20-50)
[2023-06-03 20:36] LABS: Folic Acid 13.8 ng/mL (2.76->20); Vitamin B12 > 1000.0 pg/mL (239-931)
[2023-06-03 20:54] LABS: Vitamin D 25 Hydroxy 27.5 ng/mL
== END 2023-06-03 14:31 | disposition home or self-care (01) ==
LOC: ANHBWCLAB 14:32
PROVIDERS: PCP Family Medicine; Visit Provider Nurse Practitioner Adult Health
DX: R79.89 Other specified abnormal findings of blood chemistry (principal); R53.83 Other fatigue; Z79.899 Other long term (current) drug therapy; D64.9 Anemia, unspecified
CPT/HCPCS: 36415; 80053; 82306; 82607; 82746; 83540; 83550; 84436; 84443; 85027

== ENCOUNTER 2023-09-02 11:38 | Outpatient (CLI) | payer OTHER, MEDICARE, SELFPAY ==
--- NOTE | ~2023-09-02 | XR_ITS ---
XR elbow LT 2V DATE: 09/02/2023 11:53 INDICATION: Elbow pain for past 5 days TECHNIQUE: AP and lateral views of left elbow COMPARISON: None FINDINGS: No fracture or dislocation or abnormal joint effusion. No periosteal reaction or bone destr uction. IMPRESSION: No fracture or dislocation or joint effusion Reviewed, dictated and finalized at location B.
--- NOTE | ~2023-09-02 | XR_ITS ---
XR humerus LT DATE: 09/02/2023 11:53 INDICATION: Follow-up of humeral fracture TECHNIQUE: AP and lateral views COMPARISON: 08/28/2023 left shoulder FINDINGS: There is a transverse nondisplaced surgical neck fracture of the left humerus without signi ficant displacement or angulation since 08/28/2023. No other fracture or dislocation. Normal alignment at the acromion clavicular and glenohumeral and el bow joints. There is prominent osteoarthritic change at the left glenohumeral joint. IMPRESSION: Nondisplaced transverse surgical neck fracture of the left humerus Left glenohumeral osteoarthritis Reviewed, dictated and finalized at location B.
== END 2023-09-02 11:39 | disposition home or self-care (01) ==
LOC: ANHBWCIMG 11:40
PROVIDERS: PCP Nurse Practitioner Adult Health; Visit Provider Nurse Practitioner Adult Health
DX: S42.202A Unspecified fracture of upper end of left humerus, initial encounter for closed fracture (principal); S49.90XA Unspecified injury of shoulder and upper arm, unspecified arm, initial encounter; X58.XXXA Exposure to other specified factors, initial encounter; M19.012 Primary osteoarthritis, left shoulder
CPT/HCPCS: 73060; 73070

== ENCOUNTER 2023-09-23 12:55 | Outpatient (CLI) | payer OTHER, MEDICARE, SELFPAY ==
--- NOTE | ~2023-09-23 | XR_ITS ---
EXAMINATION: XR shoulder LT min 2V DATE: 09/23/2023 13:08 INDICATION: Persistent left shoulder pain post recent proximal left humeral fracture TECHNIQUE: AP internally and externally rotated, AP oblique externally rotated and transscapular Y vi ews of the left shoulder were obtained. COMPARISON: 08/28/2023 and 09/02/2023 FINDINGS: Again seen is a nondisplaced mildly comminuted 1 part fracture of the proximal left humerus with frac tures involving the surgical neck and greater tuberosity. There is some increased sclerosis along the fracture planes as well as some likely bridging or nearly bridging callus formation along the margin s of the surgical neck fracture fracture plane. No new fractures identified. Moderate osteoarthritis at the left glenohumeral joint. This osteochondral body at the deep subscapular recess. There is also moderate left acromioclavicular osteoarthritis. Soft tissues are unremarkable. Visualized portion of the lungs are clear. IMPRESSION: 1. Healing nondisplaced mildly comminuted 1 part fracture the proximal left humerus which remains in near-anatomic alignment. 2. Moderate left nolan clavicular and glenohumeral osteoarthritis. Reviewed, dictated and finalized at location A. ER ENGINEER HELPER IMPRESSION: 1. Healing nondisplaced mildly comminuted 1 part fracture the proximal left hum erus which remains in near-anatomic alignment. 2. Moderate left nolan clavicular and glenohumeral osteoarthritis.
== END 2023-09-23 12:56 | disposition home or self-care (01) ==
PROVIDERS: PCP Nurse Practitioner Adult Health; Visit Provider Orthopaedic Surgery
DX: M19.012 Primary osteoarthritis, left shoulder (principal); S42.295D Other nondisplaced fracture of upper end of left humerus, subsequent encounter for fracture with routine healing; X58.XXXD Exposure to other specified factors, subsequent encounter
CPT/HCPCS: 73030

== ENCOUNTER 2023-10-07 13:45 | Outpatient (CLI) | payer OTHER, MEDICARE, SELFPAY ==
--- NOTE | ~2023-10-07 | XR_ITS ---
EXAMINATION: XR shoulder LT min 2V DATE: 10/07/2023 13:59 INDICATION: Left shoulder fracture follow-up. TECHNIQUE: 4 views of left shoulder were obtained. COMPARISON: Left shoulder radiographs 09/23/2023, 08/28/2023 FINDINGS: There is a transverse fracture of surgical neck of proximal left humerus. The distal fractu re fragment demonstrates impaction. There is increased callus about the fracture line. There is sever e osteoarthritis of glenohumeral joint and acromioclavicular joint. There are loose bodies in the gle nohumeral joint. IMPRESSION: 1. Healing one-part fracture of proximal left humerus. 2. Polyarticular osteoarthritis. 3. Loose bodies in the glenohumeral joint. Reviewed, dictated and finalized at location E. UNTING SYSTEMS ANALYST
== END 2023-10-07 13:46 | disposition home or self-care (01) ==
LOC: ANHBWCIMG 13:48
PROVIDERS: PCP Nurse Practitioner Adult Health; Visit Provider Orthopaedic Surgery
DX: S42.202A Unspecified fracture of upper end of left humerus, initial encounter for closed fracture (principal); X58.XXXA Exposure to other specified factors, initial encounter; M19.012 Primary osteoarthritis, left shoulder; M24.012 Loose body in left shoulder
CPT/HCPCS: 73030

== ENCOUNTER 2023-11-18 13:21 | Outpatient (CLI) | payer OTHER, MEDICARE, SELFPAY ==
--- NOTE | ~2023-11-18 | XR_ITS ---
XR shoulder LT min 2V DATE: 11/18/2023 13:31 INDICATION: Proximal humeral fracture follow-up TECHNIQUE: 3 views COMPARISON: 10/07/2023 left shoulder FINDINGS: There is virtually anatomic position and alignment at the previously reported transverse johnson rgical neck fracture of the left humerus. There is evidence of interval healing, the fracture line le ss evident, with some organized periosteal reaction bridging the fracture site. Prominent glenohumeral osteoarthritis. Degenerative change of the left acromioclavicular joint. Osteopenia. IMPRESSION: Healing transverse surgical neck humeral fracture Reviewed, dictated and finalized at location B. BLOCKER
== END 2023-11-18 13:22 | disposition home or self-care (01) ==
LOC: ANHBWCIMG 13:23
PROVIDERS: PCP Nurse Practitioner Adult Health; Visit Provider Orthopaedic Surgery
DX: S42.202D Unspecified fracture of upper end of left humerus, subsequent encounter for fracture with routine healing (principal); X58.XXXD Exposure to other specified factors, subsequent encounter
CPT/HCPCS: 73030

== ENCOUNTER 2023-12-16 12:36 | Outpatient (CLI) | payer OTHER, MEDICARE, SELFPAY ==
--- NOTE | ~2023-12-16 | XR_ITS ---
EXAMINATION: XR shoulder LT min 2V DATE: 12/16/2023 12:57 INDICATION: Follow-up proximal left humeral fracture TECHNIQUE: AP internally and externally rotated, AP oblique externally rotated and transscapular Y vi ews of the left shoulder were obtained. COMPARISON: None FINDINGS: Progressive healing of a transverse fracture at the surgical neck of the proximal left humerus which remains in near-anatomic alignment. There cortical remodeling with incorporation of the calcification at the margins of the fracture and decrease in the linear sclerosis along the fracture plane . No ne w fractures identified. Moderate left glenohumeral and acromioclavicular osteoarthritis. Soft tissues are unremarkable. Visualized portion of the left lung is clear. IMPRESSION: Advanced healing of a fracture at the surgical neck the proximal left humerus which remains in near a natomic alignment. 2. Moderate left acromioclavicular and glenohumeral osteoarthritis. Reviewed, dictated and finalized at location A. FACTURING PROCESS TECHNICIAN IMPRESSION: Advanced healing of a fracture at the surgical neck the proximal left humerus w hich remains in near anatomic alignment. 2. Moderate left acromioclavicular and glenohumeral osteoarthritis.
== END 2023-12-16 12:37 | disposition home or self-care (01) ==
LOC: ANHBWCIMG 12:40
PROVIDERS: PCP Nurse Practitioner Adult Health; Visit Provider Orthopaedic Surgery
DX: S42.202A Unspecified fracture of upper end of left humerus, initial encounter for closed fracture (principal); X58.XXXA Exposure to other specified factors, initial encounter
CPT/HCPCS: 73030

== ENCOUNTER 2024-01-01 11:20 | Outpatient (CLI) | payer MEDICARE, SELFPAY ==
[2024-01-01 19:10] LABS: Alanine Aminotransferase 25 U/L (6-35); Alkaline Phosphatase 110 U/L (38-126); Anion Gap 6 mmol/L (8-16); Aspartate Amino Transferase 46 U/L (14-36); Bilirubin,Total 0.7 mg/dL (0.2-1.3); Blood Urea Nitrogen 16 mg/dL (7-17); Calcium 9.5 mg/dL (8.4-10.2); Carbon Dioxide 26 mmol/L (22-30); Chloride 93 mmol/L (98-107); Estimated Glomerular Filt Rate > 60; Glucose 128 mg/dL (65-110); Potassium 4.1 mmol/L (3.4-5.0); Sodium 125 mmol/L (137-145)
[2024-01-01 19:13] LABS: Iron 70 ug/dL (37-170)
[2024-01-01 19:18] LABS: Percent Iron Saturation 14 % (20-50)
[2024-01-01 20:01] LABS: Vitamin B12 > 1000.0 pg/mL (239-931)
[2024-01-01 21:54] LABS: Hepatitis B Surface Antigen Negative (Negative)
[2024-01-01 21:58] LABS: HAV RESULT Negative (Negative); Hepatitis B Core IgM Result Negative (Negative)
[2024-01-01 22:10] LABS: Hepatitis C Virus Antibody Negative (Negative)
[2024-01-01 22:12] LABS: Hepatitis A Antibody IgM 0.01 s/c; Hepatitis B Core Antibody, IgM 0.01 S/C; Hepatitis B Surface Antigen 0.05 S/C; Hepatitis C Virus Antibody 0.01 S/C
[2024-01-04 00:40] LABS: Alpha-Tocopherol 12.6 mg/L (5.7-19.9); Beta-Gamma Tocopherol <1.0 mg/L (<=4.3); Vitamin A 53 mcg/dL (38-98)
== END 2024-01-01 11:21 | disposition home or self-care (01) ==
PROVIDERS: PCP Family Medicine; Visit Provider Family Medicine
DX: R74.8 Abnormal levels of other serum enzymes (principal); R53.83 Other fatigue; I48.91 Unspecified atrial fibrillation; F31.81 Bipolar II disorder; F25.9 Schizoaffective disorder, unspecified; Z00.00 Encounter for general adult medical examination without abnormal findings; D64.9 Anemia, unspecified; R51.9 Headache, unspecified; E03.9 Hypothyroidism, unspecified; E66.9 Obesity, unspecified
CPT/HCPCS: 36415; 80053; 80074; 82306; 82607; 83540; 83550; 84446; 84590

== ENCOUNTER 2024-02-26 13:29 | Outpatient (CLI) | payer MEDICARE, SELFPAY ==
[2024-02-26 20:15] LABS: Alanine Aminotransferase 17 U/L (6-35); Albumin Level 3.8 g/dL (3.5-5.1); Alkaline Phosphatase 79 U/L (38-126); Anion Gap 5 mmol/L (4-12); Aspartate Amino Transferase 59 U/L (14-36); Bilirubin,Total 0.4 mg/dL (0.2-1.3); Blood Urea Nitrogen 12 mg/dL (7-17); Calcium 9.3 mg/dL (8.4-10.2); Carbon Dioxide 30 mmol/L (22-30); Chloride 100 mmol/L (98-107); Estimated Glomerular Filt Rate > 60; Glucose 99 mg/dL (65-110); Potassium 3.4 mmol/L (3.4-5.0); Sodium 135 mmol/L (137-145)
[2024-02-26 20:30] LABS: Hematocrit 35.9 % (37.0-47.0); Hemoglobin 11.3 g/dL (12.0-15.0); Mean Corpuscular HGB Conc 31.5 g/dl (32-36); Mean Corpuscular Hemoglobin 27.6 pg (26-34); Mean Corpuscular Volume 87.8 fl (80-100); Mean Platelet Volume 10.3 fl (7.4-10.4); Platelet Count Result 271 k/mm3 (150-375); Red Blood Count 4.09 M/mm3 (4.2-5.4); Red Cell Distribution Width 13.9 % (11.5-14.5); White Blood Count 4.6 K/mm3 (4.5-10.0)
[2024-02-26 20:44] LABS: Vitamin D 25 Hydroxy 31.5 ng/mL
[2024-02-26 21:22] LABS: Hemoglobin A1C 5.6 % (<5.7)
[2024-02-26 21:27] LABS: Folic Acid > 20.0 ng/mL (2.76->20); Vitamin B12 > 1000.0 pg/mL (239-931)
== END 2024-02-26 13:30 | disposition home or self-care (01) ==
LOC: ANHBWCLAB 13:32
PROVIDERS: PCP Nurse Practitioner Adult Health; Visit Provider Nurse Practitioner Adult Health
DX: E87.1 Hypo-osmolality and hyponatremia (principal); R53.83 Other fatigue; E03.9 Hypothyroidism, unspecified; R79.89 Other specified abnormal findings of blood chemistry; R63.1 Polydipsia; Z79.899 Other long term (current) drug therapy
CPT/HCPCS: 36415; 80053; 82306; 82607; 82746; 83036; 84443; 85027

== ENCOUNTER 2024-03-09 07:38 | Outpatient (CLI) | payer MEDICARE, SELFPAY ==
[2024-03-09 19:37] LABS: Iron 45 ug/dL (37-170)
[2024-03-09 19:47] LABS: Percent Iron Saturation 10 % (20-50)
[2024-03-09 20:08] LABS: Anion Gap 3 mmol/L (4-12); Blood Urea Nitrogen 18 mg/dL (7-17); Calcium 9.1 mg/dL (8.4-10.2); Carbon Dioxide 28 mmol/L (22-30); Chloride 106 mmol/L (98-107); Estimated Glomerular Filt Rate > 60; Glucose 91 mg/dL (65-110); Sodium 137 mmol/L (137-145)
[2024-03-09 20:11] LABS: IFOB Positive Control Positive; Immunochemical Fecal Occult Bl Positive (N)
[2024-03-09 20:14] LABS: Ferritin 9.43 ng/mL (11.1-264)
== END 2024-03-09 07:39 | disposition home or self-care (01) ==
PROVIDERS: Family Medicine; PCP Nurse Practitioner Adult Health; Visit Provider Nurse Practitioner Adult Health
DX: E87.1 Hypo-osmolality and hyponatremia (principal); D64.9 Anemia, unspecified
CPT/HCPCS: 36415; 80048; 82274; 82728; 83540; 83550

== ENCOUNTER 2024-07-01 14:59 | Outpatient (CLI) | payer MEDICARE, SELFPAY ==
[2024-07-01 19:08] LABS: Basophils Percent Auto 0.3 % (0.2-1.2); Eosinophils Percent Auto 0.3 % (0-4.4); Hemoglobin 13.5 g/dL (12.0-15.0); Immature Granulocyte Absolute 0.02 K/mm3 (0.00-0.031); Immature Granulocyte Percent A 0.3 % (0-0.5); Lymphocytes Absolute Auto 1.26 K/mm3 (0.9-3.2); Lymphocytes Percent Auto 21.9 % (18.3-44.2); Mean Corpuscular HGB Conc 32.9 g/dl (32-36); Mean Corpuscular Hemoglobin 29.5 pg (26-34); Mean Corpuscular Volume 89.5 fl (80-100); Mean Platelet Volume 10.6 fl (7.4-10.4); Monocytes Absolute Auto 0.3 K/mm3 (0.1-0.6); Monocytes Percent Auto 5.2 % (2.6-8.5); Neutrophils Absolute Auto 4.1 K/mm3 (1.3-6.7); Platelet Count Result 261 k/mm3 (150-375); Red Blood Count 4.58 M/mm3 (4.2-5.4); White Blood Count 5.8 K/mm3 (4.5-10.0)
[2024-07-01 19:52] LABS: Alanine Aminotransferase 35 U/L (6-35); Albumin Level 3.8 g/dL (3.5-5.1); Alkaline Phosphatase 87 U/L (38-126); Anion Gap 9 mmol/L (4-12); Aspartate Amino Transferase 50 U/L (14-36); Bilirubin,Total 0.4 mg/dL (0.2-1.3); Blood Urea Nitrogen 7 mg/dL (7-17); Calcium 8.9 mg/dL (8.4-10.2); Carbon Dioxide 28 mmol/L (22-30); Chloride 99 mmol/L (98-107); Cholesterol 172 mg/dL (0-200); Estimated Glomerular Filt Rate > 60; Glucose 99 mg/dL (65-110); HDL Direct 42 mg/dL; Potassium 3.1 mmol/L (3.4-5.0); Sodium 136 mmol/L (137-145); Triglycerides 124 mg/dL (<150)
[2024-07-01 20:03] LABS: LDL Cholesterol Direct 93 mg/dL
[2024-07-01 20:18] LABS: Vitamin D 25 Hydroxy 37.9 ng/mL
== END 2024-07-01 15:00 | disposition home or self-care (01) ==
LOC: ANHBWCLAB 15:00
PROVIDERS: PCP Nurse Practitioner Adult Health; Visit Provider Nurse Practitioner Adult Health
DX: R79.89 Other specified abnormal findings of blood chemistry (principal); D64.9 Anemia, unspecified; I10 Essential (primary) hypertension; Z79.899 Other long term (current) drug therapy
CPT/HCPCS: 36415; 80053; 80061; 82306; 82607; 84443; 85025

== ENCOUNTER 2024-12-01 14:31 | Outpatient (CLI) | payer MEDICARE, SELFPAY ==
--- OUTSIDE RECORDS SUMMARY | 2024-12-01 15:08 | XMS_ITS | Encounter Summary ---
Author Organization [facility] Address [address] [place] [address] Care Team Providers Care Civil Engineering Director Name Role Phone Unavailable Primary Care Provider Unavailabl e Encounter Details Date Type Department Care Team (Latest Contact Info) Description 12/01/2004 Outpatient Historical [facility] Haylie Whittington ORGANIC BRAIN DISORDER NOS (Primary Dx) Social History Tobacco Use Types Packs/Day Years Used Date Smoking Tobacco: Never Assessed Comments Unknown Sex and Gender Information Value Date Recorded Sex Assigned at Not on file Legal Sex Female 3:40 AM DISABILITY ADVOCATE Gender Identity Not on file Sexual Orientation Not on file documented as of this encounter Plan of Treatment Not on file documented as of this encounter Visit Diagnoses Diagnosis Unspecified persistent mental disorders due to conditions classified elsewhere- Primary documented in this encounter
--- OUTSIDE RECORDS SUMMARY | 2024-12-01 15:08 | XMS_ITS | Clinical Summary ---
Author Organization [facility] Address [address] [place] [address] Care Team Providers Care Welder 2Nd Shift Name Role Phone Remington Man MD Primary Care Provider [phone] Jesica García GLASS INSTALLER, PARTS INSPECTOR Unavailable [phone] Ellie Tao GLASS INSTALLER, PARTS INSPECTOR Unavailable Allergies Active Allergy Reactions Criticality Noted Date Comments Quetiapine Other (see Comments) Low 05/27/2023 Agitation Sertraline Hcl Other (see Comments) 04/19/2016 joints in my body hurt really bad Medications Lurasidone HCl 60 MG Tablet Take 80 mg by mouth daily. Active DULoxetine (CYMBALTA) [address] Particles Take 60 mg by mouth daily. Active pramipexole (MIRAPEX) 0.5 MG Tablet Take 0.5 mg by mouth 2 times daily. Active niacin 500 MG Tablet Take 500 mg by mouth daily. Active aspirin-dypyrida mole (AGGRENOX) 25-200 MG CAPSULE SR 12 HR Take 1 Capsule by mouth daily. Active montelukast (SINGULAIR) 10 MG Tablet Take 10 mg by mouth every evening. Active omeprazole (PRILOSEC) 40 MG CAPSULE DELAYED RELEASE Take 40 mg by mouth daily. Active levothyroxine (SYNTHROID) 100 MCG Tablet Take 50 mcg by mouth daily. Active vitamin D (CHOLECALCIFEROL ) 1000 UNIT Tablet Take 50,000 Units by mouth once a week. Active Topiramate 50 MG Tablet Take 50 mg by mouth 2 times daily. Active temazepam (RESTORIL) 15 MG Capsule Take 30 mg by mouth nightly as needed for Sleep. Active vitamin b-12 (CYANOCOBALAMIN) 250 MCG Tablet Take 500 mcg by mouth daily. Active B Complex-C (SUPER B COMPLEX PO) Take 1 Tablet by mouth daily. Active Multiple Vitamins-Mineral s (MULTIVITAMIN PO) Take 1 Tablet by mouth daily. Active Cyanocobalamin (B-12 PO) Take 1 Tablet by mouth daily. Active Calcium Citrate 200 MG Tablet Take 1 Tablet by mouth daily. Active Ranitidine HCl 150 MG Capsule Take 150 mg by mouth 2 times daily. Active dicyclomine (BENTYL) 20 MG Tablet Take 20 mg by mouth every 8 hours. Active methylPREDNISolo ne (MEDROL DOSPACK) 4 MG Tablet Therapy Pack See product package insert for dosing schedule 21 Tab 0 6 Active Additional Information Patient not taking.Reported on 05/27/2023 pantoprazole (PROTONIX) 40 MG Pack 40 mg by Per NG tube route daily. Active liothyronine (CYTOMEL) 5 MCG Tablet Take 5 mcg by mouth 2 times daily. Active traZODone (DESYREL) 150 MG Tablet Take 300 mg by mouth nightly. Active aspirin 81 MG Chewable Tablet Take 81 mg by mouth daily. Active diphenhydrAMINE (BENADRYL) 50 MG Capsule Take 50 mg by mouth nightly. Active doxepin (SINEQUAN) 50 MG Capsule 3 Active ferrous sulfate 324 MG Tablet Delayed Response Take 65 mg by mouth. Active FLUoxetine (PROZAC) 40 MG Capsule 3 Active gabapentin (NEURONTIN) 600 MG Tablet Take 600 mg by mouth. 3 Active hydrOXYzine (ATARAX) 25 MG Tablet Take 25 mg by mouth. 3 Active HYDROcodone-acet aminophen (NORCO) 5-325 MG TabletIndication s:2-part displaced fracture of surgical neck of left humerus Take 1 Tablet by mouth every 6 hours as needed for Moderate or more severe pain. 20 Tablet 3 Active Additional Information Patient not taking.Reported on 10/30/2023 Invega Sustenna 234 MG/1.5ML Suspension Prefilled Syringe every 30 days. 3 Active metoprolol Succinate (TOPROL-XL) 25 MG TABLET SR 24 HR Take 1 Tablet by mouth daily. 90 Tablet 3 4 Active Eliquis 5 MG TabletIndication s:Atrial Fibrillation Take 1 Tablet by mouth 2 times daily. Indications: Atrial Fibrillation 180 Tablet 3 4 Active Thiamine HCl (VITAMIN B-1 PO) Take by mouth. Active buPROPion SR (WELLBUTRIN SR) 100 MG TABLET SR 12 HR 100 mg. 4 Active busPIRone (BUSPAR) 5 MG Tablet 5 mg. 4 Active Active Problems No known active problems Encounters Date Type Department Care Team Description 08/31/2024 1:30 PM CDT Office Visit [facility] - Cardiology [facility] [address] [place] [address] Jesica García, GLASS INSTALLER, PARTS INSPECTOR Atrial fibrillation, unspecified type (HCC) (Primary Dx); Hypertension, unspecified type Discharge Disposition: Discharged to home or Selfcare 08/31/2024 Travel from Last 3 Months Social History Tobacco Use Types Packs/Day Years Used Date Smoking Tobacco: Every Day Cigarettes Last attempted to quit: 12/20/2015 Smokeless Tobacco: Never Tobacco Cessation:Ready to Q uit: Not Asked; Counseling Given: Not Answered Alcohol Use Standard Drinks/Week Comments No 0 (1 standard drink = 0.6 oz pur e alcohol) Sexually Active Control Partners Comments Not Currently Comments No Sex and Gender Information Value Date Recorded Sex Assigned at Not on file Legal Sex Female 11:31 PM CDT Gender Identity Not on file Sexual Orientation Not on file Last Filed Vital Signs Vital Sign Reading Time Taken Comments Blood Pressure 130/74 08/31/2024 1:27 PM CDT Pulse 90 08/31/2024 1:27 PM CDT Temperature 36.3 ??C (97.3 ??F) 08/31/2024 1:27 PM CD T Respiratory Rate 16 08/31/2024 1:27 PM CDT Oxygen Saturation 97% 08/31/2024 1:27 PM CDT Inhaled Oxygen Concentration - - Weight 95.7 kg (211 lb) 08/31/2024 1:27 PM CDT Height 165.1 cm (5' 5 ) 08/31/2024 1:27 PM CDT Body Mass Index 35.11 08/31/2024 1:27 PM CDT Plan of Treatment Upcoming Encounters Date Type Department Care Team (Late st Contact Info) Description 05/03/2025 2:00 PM CDT Office Visit [facility] - Cardiology - [place] [address] [place] [address] Jesica García, GLASS INSTALLER, PARTS INSPECTOR [address] [facility], [address] [place] [address] Health Maintenance Due Date Last Done Comments Hepatitis C Virus (HCV) Screening 1960 TdaP Immunization 1958 Pneumococcal Immunization (5 0+ years) (1 of 2 - PCV) 1977 Colonoscopy 2003 Cologuard 2008 Mammogram 2008 Zoster Immunization (1 of 2) 2008 DEXA Bone Density 05/21/2016 05/21/2014 Colorectal Cancer Screening 10/25/2023 Influenza Immunization (#1) 2024 SARS-COV-2 Immunization ( season) 2024 Immunochemical Fecal Occult Blood 10/24/2024 023 Respiratory Syncytial Virus (RSV) Immunization (Adult) (1 - 1-dose 75+ series) 2033 Hepatitis B Immunization Aged Out No longer eligible based on patient's age to complete this topic Meningococcal Immunization (ACWY) Aged Out No longer eligible based on patient's age to complete this topic Rotavirus Immunization Aged Out No lo nger eligible based on patient's age to complete this topic Procedures Procedure Name Priority Date/Time Associated Diagnosis Comments STOOL, OCCULT BLOOD, DIAGNOSTIC, VIA GUAIAC STAT 10/24/2023 9:45 AM ASSEMBLER TUBING from Last 3 Months or Most Recently Relevant to Health Maintenance Results * Stool Occult Blood - Diagnostic (10/24/2023 9:45 AM ASSEMBLER TUBING) OCCULT BLOOD DIAG, GI BLEED Negative Negative 10/24/2023 10:01 AM ASSEMBLER TUBING [facility] Stool Non-Phlebotomy Collection / Unknown 10/24/2023 9:45 AM ASSEMBLER TUBING 10/24/2023 9:58 AM ASSEMBLER TUBING Dean Mcgregor MD BODY FLUIDS & STOOLS ORDER CARMENCITA Final Result [facility] [address] [place] [address] from Last 3 Months or Most Recently Relevant to Health Maintenance Insurance MEDICARE [place] [employer] [address] [place] [address] Care Teams Welder 2Nd Shift Relationship Specialty Start Date End Date Remington Man MD [address] [place] [id number] PCP - General Family Medicine 08/24/23 Jesica García APRN, PARTS INSPECTOR [address] [facility], [address] [place] [address] Nurse Practitioner Cardiology 10/30/23 Ellie Tao APRN, PARTS INSPECTOR [address] [place] [address] Nurse Practitioner Advanced Practice Nurse 04/02/24
--- OUTSIDE RECORDS SUMMARY | 2024-12-01 15:08 | XMS_ITS | Referral Summary ---
Author Organization Address [address] [place] [id number] Care Team Providers Care Package Center Supervisor Name Role Phone Remington Man MD Primary Care Provider [phone] Fernie Argueta MD Unavailable [phone] Allergies Active Allergy Reactions Criticality Noted Date Comments Quetiapine Agitation Low Sertraline Headache Low 12/27/2014 Sertraline Hcl Other (See comments),Unknown Low 04/19/2016 joints in my body hurt really bad joints in my body hurt really bad Medications liothyronine (CYTOMEL) 5 mcg tabletIndications :hypothyroidism Take 1 tablet (5 mcg total) by mouth 2 (two) times a day 0 Active Invega Sustenna 234 mg/1.5 mL syringeIndication s:Schizophrenia Inject 1.5 mL (234 mg total) into the muscle as instructed every 30 (thirty) days 1 Active doxepin (SINEquan) 50 mg capsule Take 1 capsule (50 mg total) by mouth nightly 3 Active FLUoxetine (PROzac) 40 mg capsule Take 1 capsule (40 mg total) by mouth 2 (two) times a day 3 Active gabapentin (NEURONTIN) 600 mg tablet Take 1 tablet (600 mg total) by mouth nightly 3 Active hydrOXYzine (ATARAX) 25 mg tablet Take 1 tablet (25 mg total) by mouth 3 (three) times a day as needed 3 Active lurasidone (LATUDA) 60 mg tablet Take 1 tablet (60 mg total) by mouth nightly 3 Active ferrous sulfate ER 324 mg (65 mg iron) EC tabletIndications :Iron Deficiency Anemia Take 65 mg by mouth daily with breakfast Active calcium carbonate (OS-ANA) 1,250 mg (500 mg elemental) tablet Take 1 tablet (1,250 mg total) by mouth daily Active cyanocobalamin (Vitamin B-12) 1,000 mcg tabletIndications :Prevention of Vitamin B12 Deficiency Take 1 tablet (1,000 mcg total) by mouth daily Active apixaban (ELIQUIS) 5 mg tabletIndications :deep venous thrombosis Take 1 tablet (5 mg total) by mouth 2 (two) times a day 60 tablet 3 Active apixaban (ELIQUIS) 5 mg tabletIndications :atrial fibrillation Take 1 tablet (5 mg total) by mouth 2 (two) times a day for 13 doses 13 tablet 3 Active metoprolol XL (TOPROL-XL) 50 mg extended release tablet Take 1 tablet (50 mg total) by mouth daily 30 tablet 11 3 Active Active Problems Problem Noted Date Diagnosed Date Moderate protein-calorie malnutrition (CMS/HCC) 03/29/2023 Atrial fibrillation with RVR (CMS/HCC) 3 New onset atrial fibrillation (CMS/HCC) 03/29/20 23 New onset a-fib (CMS/HCC) 03/29/2023 Near syncope 03/28/2023 Suicidal ideations 06/03/2021 Assessment & Plan (06/04/2021 3:59 AM CDT): Patient presented to the hospital for suicidal ideation. Patient currently on suicide precautions. She denies any suicidal ideations at this time. Awaiting psychiatric evaluation. Patient initially cleared for [facility] however was COVID positive. Chronic rhinitis 01/30/2021 Moderate depressed bipolar I disorder (CMS/HCC) 09/21/2019 Primary osteoarthritis of right knee 07/23/2018 Overview (07/23/2018): Added automatically from request for surgery [id number] Polyneuropathy 04/23/2017 Assessment & Plan (06/04/2021 4:00 AM CDT): Will need to confirm patient's home dose of gabapentin. She stated her gabapentin made her legs her earlier this evening. Osteoarthritis 12/03/2016 Lumbar radiculopathy 06/27/2015 Overview (02/07/2017): Lumbar radiculopathy Hypothyroidism 06/27/2015 Overview (02/07/2017): Hypothyroidism Assessment & Plan (06/04/2021 3:58 AM CDT): Patient told RN he no longer takes her levothyroxine and that was discontinued by her doctor. Will need to confirm with pharmacy regarding patient's active med list. TSH was normal. Vitamin D deficiency 06/27/2015 Overview (02/07/2017): Vitamin D deficiency Schizoaffective schizophrenia ([facility] 06/27/20 15 Overview (02/07/2017): Schizoaffective schizophrenia Assessment & Plan (06/04/2021 3:58 AM CDT): Need to confirm patient's home medications with pharmacy. Patient stated the medications we gave her, Zyprexa and gabapentin, made her legs hurt. 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 Will monitor. Hypokalemia 06/04/2021 06/06/2021 Assessment & Plan (06/04/2021 3:59 AM CDT): Treated in the ED. currently resolved. Will continue to monitor. Aftercare following right kn ee joint replacement surgery 08/20/2018 08/01/2019 Anemia following surgery 08/20/2018 Bilateral numbness and tingl ing of arms and legs 07/25/2017 08/01/2019 Bronchitis 07/25/2017 08/01/2019 Environmental allergies 04/23/201707/06 Migraine 04/23/2017 08/01/2019 Hypothyroidism 01/24/2017 08/01/2019 History of bariatric surgery 12/03/2016 08/01/2019 Cerebrovascular accident 12/03/2016 Gastric ulcer 01/31/2016 08/01/2019 Onychomycosis 06/27/2015 08/01/2019 Overview (02/07/2017): Onychomycosis Candidiasis of vagina 06/27/20152018 Overview (02/07/2017): Candidiasis of vagina Megaloblastic anemia 06/27/2015 019 Overview (02/07/2017): Megaloblastic anemia Urinary tract infection 06/27/201507/06 Overview (02/07/2017): Urinary tract infectious disease Cellulitis 06/27/2015 08/01/2019 Overview (02/07/2017): Cellulitis Knee pain 06/27/2015 08/01/2019 Overview (02/07/2017): Knee pain Atopic rhinitis 06/27/2015 08/01/2019 Overview (02/07/2017): Allergic rhinitis Periodontitis 06/27/2015 08/01/2019 Overview (02/07/2017): Periodontitis Disorder of bone 12/27/2014 08/01/2019 Headache(784.0) 12/27/2014 08/01/2019 Immunizations Name Administration Dates Next Due Influenza, Trivalent, IM (MDV) 08/12/2015 Social History Tobacco Use Types Packs/Day Years Used Date Smoking Tobacco: Every Day Cigarettes 1.5 30 Started: 1988; Last attempted to quit: 2018 Smokeless Tobacco: Never Tobacco Cessation:Ready to Q uit: Not Asked; Counseling Given: Not Answered Comments:Smoking History Packs/day: 1 Packs Alcohol Use Standard Drinks/Week Comments Not Currently 0 (1 standard drink = 0.6 oz pur e alcohol) Social Connection and Isolat ion Panel [NHANES] Answer Date Recorded In a typical week, how many times do you talk on the phone with family, friends, or neighbors? More than three times a week 03/29/2023 How often do you get togethe r with friends or relatives? Twice a week 03/29/2023 How often do you attend [facility] or jain services? More than 4 times per year 03/29/2023 Do you belong to any clubs o r organizations such as shinto groups, unions, fraternal or athletic groups, or school groups? No 03/29/2023 How often do you attend meet ings of the clubs or organizations you belong to? Never 03/29/2023 Are you , , di vorced, , never , or living with a partner? 03/29/2023 AUDIT-C Answer Date Recorded Q1: How often do you have a drink containing alc ohol? Never 06/03/2021 Q2: How many drinks containi ng alcohol do you have on a typical day when you are drinking? 1 or 2 06/03/2021 Q3: How often do you have six or more drinks on one occasion? Never 06/03/2021 Overall Financial Resource Strain (CARDIA) Answe r Date Recorded How hard is it for you to pa y for the very basics like food, housing, medical care, and heating? Not hard at all 03/29/2023 PHQ-2 Answer Date Recorded PHQ-2 Total Score (If total score is 3 or more points, staff should administer the PHQ-9) 4 06/03/2021 PRAPARE - Transportation Answer Date Re corded In the past 12 months, has l ack of transportation kept you from medical appointments or from getting medications? No 03/05 In the past 12 months, has l ack of transportation kept you from meetings, work, or from getting things needed for daily living? No 03/29/2023 Personal Safety Answer Date Recorded Have you ever been in or are you currently in a harmful physical or emotional relationship or is someone making you feel afraid or unsafe? Denies 03/28/2023 Education Answer Date Recorded What is the highest level of school you have completed or the highest degree you have received? High school graduate 03/29/2023 Comments No Sex and Gender Information Value Date Recorded Sex Assigned at Not on file Legal Sex Female 7:19 PM [employer] Gender Identity Not on file Sexual Orientation Not on file Last Filed Vital Signs Vital Sign Reading Time Taken Comments Blood Pressure 118/72 03/30/2023 7:38 AM CDT Pulse 76 03/30/2023 8:00 AM CDT Temperature 36.1 ??C (96.9 ??F) 03/30/2023 7:38 AM CD T Respiratory Rate 16 03/30/2023 7:38 AM CDT Oxygen Saturation 99% 03/30/2023 7:38 AM CDT Inhaled Oxygen Concentration - - Weight 87 kg (191 lb 12.8 oz) 03/28/2023 1:44 PM CDT Height 162.6 cm (5' 4 ) 03/28/2023 1:44 PM CDT Body Mass Index 32.92 03/28/2023 1:44 PM CDT Plan of Treatment Not on file Medical Devices Implanted Type Area Field Hauler Device Identifier Shelf Expiration Date Model / Serial / Lot Optetrak Logic Stem Extension Straight, Femoral And Tibial, Cemented Implanted:Qty: 1 on 08/19/2018 by Gage Hernadez MD at [facility] Other - see comments Right: Knee Exactech [id number] 06/18/2023 [id number] 5 / [id number] / Optetrak 3 Peg Advanced Patella Cemented, Thickness 8.2mm Implanted:Qty: 1 on 08/19/2018 by Gage Hernadez MD at [facility] Patella Right: Knee [employer]ech [id number] 07/03/2023 200-07-32 / [id number] / Cc Stem Extension Retain Screw Implanted:Qty: 1 on 08/19/2018 by Gage Hernadez MD at [facility] Screw Right: Knee Exactech [id number] / / [employer] [id number] Restrictor Femur Kit Preparation Sterile - [id number] Implanted:Qty: 1 on 08/19/2018 by Gage Hernadez MD at [facility] Right: Knee [employer] 02/01/2023 [id number] / / [id number] Description:Cement restricto r Exactech [id number] Truliant Knee 4f/4t Tray Tibial Sterile Latex Free - [id number] - [id number] Implanted:Qty: 1 on 08/19/2018 by Gage Hernadez MD at [facility] Right: Knee [employer]ech 12/31/[id number] 0 / [id number] / Exactech [id number] - [id number] - [id number] Implanted:Qty: 1 on 08/19/2018 by Gage Hernadez MD at [facility] Right: Knee [employer]ech 04/02/2028-034 0 / [id number] / Exactech [id number] Truliant H9 Mm Knee 4 Insert Tibial Sterile - [id number] - [id number] Implanted:Qty: 1 on 08/19/2018 by Gage Hernadez MD at [facility] Right: Knee [employer]ech 02/18/2026-400 9 / [id number] / [employer] [id number] Palacos R+G Cement 40gm Bone - [id number] Implanted:Qty: 3 on 08/19/2018 by Gage Hernadez MD at [facility] Right: Knee [employer] 06/03/2021 [id number] / / [id number] Description:The Blaze Palacos R+G Procedures Procedure Name Priority Date/Time Associated Diagnosis Comments COLONOSCOPY REPORT 03/14/2016 DEXA AXIAL SKELETON BONE DENSITY 1 OR MORE SITES Routine 05/21/2014 10:13 AM CDT DIGITAL MAMMOGRAPHY Routine 05/21/2014 1 0:03 AM CDT from Last 3 Months or Most Recently Relevant to Health Maintenance Results * COLONOSCOPY REPORT (03/14/2016) Anatomical Region Laterality Modality Other Narrative 03/14/2016 Ordered by an unspecified provider. us Historical Provider GI PROCEDURE ORDERABLES F inal Result * Dexa Axial Skeleton Bone Density 1 or 2 Site (05/21/2014 10:13 AM CDT) Anatomical Region Laterality Modality Body N/A Radiographic Hillary ging 05/21/2014 10:1 3 AM CDT Narrative 05/22/2014 9:31 AM CDT DEXA Bone Density Axial ??Acc#: ??[id number] DATE OF EXAM: ??May 21 2014 CLINICAL HISTORY: Chronic back pain. ??Screening for osteoporosis. ??Menopause at age 41. Hysterectomy. RESULT: DXA LEFT HIP RESULTS SUMMARY: BMD (g/cm'b2) T-score ??Z-score Neck 0.649 ??-1.8 ??-0.7 Total 0.717 ??-1.8 ??- 1.1 DXA L-SPINE RESULTS SUMMARY: BMD (g/cm'b2) T-score ??Z-score L1 1.035 ??0.4 ??1.4 L2 1.088 ??0.5 ??1.6 L3 1.113 ??0.3 ??1.4 L4 1.267 ??1.9 ??3.1 Total 1.131 ??0.8 ??1.9 IMPRESSION: 1. LEFT HIP T-SCORE -1.8; OSTEOPENIA. 2. LUMBAR SPINE T-SCORE +0.8; NORMAL. COMMENT: W.H.O. defines the T-score of between -1 and -2.5 as osteopenia, the level at which there may be an increased risk of developing osteoporosis and fractures in the future. ??Osteoporosis is defined as T-score lower than -2.5 (significantly increased risk of fracture due to osteoporosis). ??T-score is a comparison to peak bone mineral density of young adult reference population. ??Z-score is a comparison to bone mineral density of sex and age group population. Interpreting Physician: ??DR RAZ BA M.D. ??Read on: ??May 21 2014 12:15P Transcribed by: ??mrr ??On: May 21 2014 ??1:15P Approved Electronically by: ??JESENIA Vasquez, DR CRANDALL ??on: ??May 22 2014 9:31A Ordering DR: JULIAN TURCIOS Attending DR: SOL JONES Procedure Note Provider, MD Janis - 02/27/2017 DEXA Bone Density Axial Acc#: [id number] DATE OF EXAM: May 21 2014 CLINICAL HISTORY: Chronic back pain. Screening for osteoporosis. Menopause at age 41.Hysterectomy. RESULT: DXA LEFT HIP RESULTS SUMMARY: BMD (g/cm'b2) T-score Z-score Neck 0.649 -1.8 -0.7 Total 0.717 -1.8-1.1 DXA L-SPINE RESULTS SUMMARY: BMD (g/cm'b2) T-score Z-score L1 1.035 0.4 1.4 L2 1.088 0.5 1.6 L31.113 0.3 1.4 L4 1.267 1.9 3.1 Total 1.131 0.8 1.9 IMPRESSION: 1. LEFT HIP T-SCORE -1.8; OSTEOPENIA. 2. LUMBAR SPINE T-SCORE +0.8; NORMAL. COMMENT: W.H.O. defines the T-score of between -1 and -2.5 as osteopenia, thelevel at which there may be an increased risk of developing osteoporosisand fractures in the future. Osteoporosis is defined as T-score lowerthan -2.5 (significantly increased risk of fracture due to osteoporosis).T-score is a comparison to peak bone mineral density of young adultreference population. Z-score is a comparison to bone mineral density ofsex and age group population. Interpreting Physician: DR RAZ BA M.D. Read on: May 21 201412:15P Transcribed by: buddy On: May 21 2014 1:15P Approved Electronically by: JESENIA Vasquez, DR CRANDALL on: May 22 20149:31[address] Ordering DR: JULIAN TURCIOS Attending DR: SOL JONES us Historical Provider MD PAULSON DXA PROCEDURES Final Result * DIGITAL MAMMOGRAPHY (05/21/2014 10:03 AM CDT) Anatomical Region Laterality Modality Breast Mammography 05/21/2014 10:0 3 AM CDT Narrative 05/21/2014 1:59 PM CDT Screening Mamm Bi ??Acc#: ??[id number] DATE OF EXAM: ??May 21 2014 CLINICAL HISTORY: Screening mammogram. Performed by: [facility] RESULT: A four view screening mammogram was performed and is compared with a prior study from 02/02/09. ??The breast tissue is almost entirely fatty (less than 25% glandular). ??A nodular density in the left subareolar region is stable. ??Little change since the prior mammogram is noted. ??No new dominant mass, architectural distortion or suspicious calcifications are seen. Digital technology was employed plus computer-aided detection software (R2) was utilized in interpretation of these images. ??This facility utilizes a reminder system to notify patients of yearly mammograms. IMPRESSION: NO SUSPICIOUS FINDINGS TO INDICATE MALIGNANCY. BI-RADS CATEGORY 2 - BENIGN FINDINGS Interpreting Physician: ??CRISTÓBAL SANTILLAN M.D. ??Read on: ??May 21 2014 10:03A Transcribed by: ??alka ??On: May 21 2014 ??1:46P Approved Electronically by: ??CRISTÓBAL SANTILLAN M.D. ??on: ??May 21 2014 1:59P Ordering DR: JULIAN TURCIOS Attending DR: SOL JONES Procedure Note Provider, Historical, MD - 02/27/2017 Screening Mamm Bi Acc#: [id number] DATE OF EXAM: May 21 2014 CLINICAL HISTORY: Screening mammogram. Performed by: [facility] RESULT: A four view screening mammogram was performed and is compared with aprior study from 02/02/09. The breast tissue is almost entirely fatty (lessthan 25% glandular). A nodular density in the left subareolar region isstable. Little change since the prior mammogram is noted. No newdominant mass, architectural distortion or suspicious calcifications areseen. Digital technology was employed plus computer-aided detectionsoftware (R2) was utilized in interpretation of these images. Thisfacility utilizes a reminder system to notify patients of yearlymammograms. IMPRESSION: NO SUSPICIOUS FINDINGS TO INDICATE MALIGNANCY. BI-RADS CATEGORY 2 -BENIGN FINDINGS Interpreting Physician: CRISTÓBAL SANTILLAN M.D. Read on: May 21 201410:03A Transcribed by: [facility] On: May 21 2014 1:46P Approved Electronically by: CRISTÓBAL SANTILLAN M.D. on: May 21 20141:59P Ordering DR: JULIAN TURCIOS Attending DR: SOL JONES us Historical Provider IMG MAMMO PROCEDURES Kori l Result from Last 3 Months or Most Recently Relevant to Health Maintenance Insurance MEDICARE IDMD [employer] COMPLETE MEDICARE MD MEDICARE IDPA [employer] CHOICE MEDICARE PPO MEDICARE COMMERCIAL GENERIC WORK[employer] [place] [address] Advance Directives For more information, please contact: [phone] Documents on File Type Date Recorded Patient Clip Baker Expl anation ADVANCE DIRECTIVE 09/30/2018 9:03 AM * Full Code (Latest Code Status on File) Date Activated Date Inactivated Comments 03/28/2023 10:45 AM 03/30/2023 1:23 PM * Full Code Date Activated Date Inactivated Comments 06/03/2021 7:37 PM 06/06/2021 6:41 PM * Full Code Date Activated Date Inactivated Comments 09/14/2019 6:00 PM 09/16/2019 2:48 PM * Full Code Date Activated Date Inactivated Comments 08/19/2018 12:36 PM 08/20/2018 4:51 PM Care Teams Package Center Supervisor Relationship Specialty Start Date End Date Remington Man MD PCP - General Family Practice 02/06/23 Fernie Argueta MD [address] [place] [address] [address] Consulting Physician Cardiovascular Disease 03/30/23
--- OUTSIDE RECORDS SUMMARY | 2024-12-01 15:08 | XMS_ITS | Clinical Summary ---
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
--- OUTSIDE RECORDS SUMMARY | 2024-12-01 15:08 | XMS_ITS | Continuity of Care Document ---
Author Organization [employer] [facility] Address [address] [place] [address] Phone Care Team Providers Care Poultry Picker Name Role Phone Sherlyn Jack OD Unavailable Unavailable Allergies, Adverse Reactions, Alerts Substance Reaction Status Criticality No Known Allergies Active No Inform ation Medications Medication Instructions Dosage Effective Dates (start - stop) Status Comments pantoprazole 40 mg tablet,delayed release take 1 tablet by oral route every day 40 MG - Active propranolol 20 mg tablet take 1 tablet by oral route 3 times every day 20 MG - Active Tirosint 100 mcg capsule take 1 capsule by oral route every day 100 MCG - Active Latuda 60 mg tablet take 1 tablet by ora l route every day with food (at least 350 calories) 60 MG - Active ziprasidone 40 mg capsule take 1 capsule by oral route 2 times every day with food 40 MG - Active trazodone 150 mg tablet take 1 tablet by oral route 3 times every day 150 MG - Active zolpidem 10 mg tablet take 1 tablet by o ral route every day at bedtime 10 MG - Active Multi Vitamin BUCCAL CAPSULE - Active Zyrtec 10 mg tablet take 1 tablet by ora l route every day 10 MG - Active Procedures Procedure Date No Charge Refraction Post-op Follow-up Visit Post-op Follow-up Visit Post-op Follow-up Visit Remove Cataract, Post Op Care 0 Remove Cataract, Insert Lens,Comanaged A IOLMaster-Professional No Charge Refraction No Charge Orbscan No Charge Optomap Fundus Photos 020 IOLMaster-Technical Office/outpatient Visit, New Advance Directives Directive Yes / No Effective Date File Name No Information Encounters Encounter Description Practice Location Reason(s) For Visit Diagnoses Date Provider Providers Copied on Encounter [facility], [address] [place] [address] [address], [place], [place], [id number], [place] tel:[phone] [place] No Information 0 Marcie OD Sherlyn. [address] [place] [address] [address], [place], [place], [id number], [place]. tel:[phone] [facility], [address] [place] [address] [address], [place], [place], [id number], tel:[phone] SEC [place] Professional 1 month s/p PCIOL (NEAR) (chief complaint) Post op visit 0 Sammy Stahl. [address] [facility], [address], [place], [place], [id number], [place]. tel:[phone] Referring Provider: Karson Prater OD, [facility] [address] [place] [address], [address]. tel:[phone] [facility], [address] [place] [address] [address], [place], [place], [id number], [place] tel:[phone] [place] Post-Op (chief complaint) Post op visit 0 No Information Referring Provider: Karson Prater OD, [facility] [address] [place], [address]. tel:[phone] [facility], [address] [place] [address] [address], [place], [place], [id number], tel:[phone] SEC [place] Post-Op (chief complaint) Post op visit 0 No Information Referring Provider: Karson Prater OD, [facility] [address] [place] [address], [address]. tel:[phone] [facility], [address] [place] [address] [address], [place], [place], [id number], [place] tel: [facility] [place] No Information 0 Sammy Stahl. [address] [facility] [address], [place], [place], [address], [place]. tel:[phone] Referring Provider: Karson Prater OD, [facility] [address] [place] [address], [address]. tel:[phone] [facility], [address] [place] [address] [address], [place], [place], [address], [place] tel:[phone] SEC [place] Professional No Information 0 Sammy Stahl. [address] [facility] [place], [address], [place]. tel:[phone] Referring Provider: Karson Prater OD, [facility] [address] [place] [address], [address]. tel:[phone] Office/outpa tient Visit, [facility], [address] [place] [address] [address], [place], [place], [address], [place] tel:[phone] SEC [place] PANDA Professional Cataract evaluation (chief complaint) Pseudophakia of left eyeAge-relate d nuclear cataract, right eyeOther secondary cataract, left eyePunctate keratitis, bilateralPing uecula, bilateral 0 Sammy Stahl. [address] [facility] [address], [place], [place], [address], [place]. tel:[phone] Referring Provider: Karson Prater OD, [facility] [address] [place] [address], [address]. tel:[phone] [facility], [address] [place] [address] [address], [place], [place], [address], [place] tel:[phone] SEC [place] FARZAD Professional No Information 0 Sammy Stahl. [address] [facility], [address], [place], [place], [address], [place]. tel:[phone] Family History Family Member Type Diagnosis Age At Onset Sister Problem Diabetes mellitus Payers Payer name Insurance type Covered green party ID Authoriza tion(s) No Information Social History Type Description Quantity Date Captured Comments Alcohol Use Details Unknown Caffeine Use Details Unknown Tobacco Use Status No Information Smoking Status No Information Sex Female Chief Complaint And Reason For Visit No Information Reason For Referral Reason For Referral No Information Plan Of Treatment Date Type Action Status Patient Education Cataract Surgery: What to Expect at H~ completed History Of Present Illness Encounter Date Complaint History Of Prese nt Illness 1 month s/p PCIOL (NEAR) The 60 year old female presents for evaluation of 1 month s/p PCIOL (NEAR) in the right eye (06/29/20). Patient states VA is good. Patient will need to return to her referring OD if glasses needed. Post-Op The 59 year old female presents for a 1 week post op CE OD set for NV. Patient is using Pred, Vigamox and Ketorolac qid OD. Patient states OD is doing good. Patient states she may need a refill on antibiotic. Post-Op The 59 year old female presents for a 1 day post op CE OD set for NV. Patient is using Pred, Vigamox and Ketorolac qid OD. Patient denies any pain or discomfort. Cataract evaluation The 59 year old female presents for evaluation of Cataract evaluation in the right eye per [facility]. Patient is pseudo OS and states OS is doing good. Patient c/o blurry vision OD for a few years. Patient avoids driving at night due to star bursts around lights. Patient is having a hard time reading small print and watching TV. Patient is wearing OTC reading glasses. Functional Status Date Functional Assessmen t No Information Instructions Date Instruction Additional Infor aminata Impression/Plan Impression/Plan Impression/Plan Impression/Plan Assessments Type Assessment Date No Information Patient Care Teams Name Effective Dates (start - stop) Status Members No Information
--- OUTSIDE RECORDS SUMMARY | 2024-12-01 15:08 | XMS_ITS | Encounter Summary ---
Author Organization [employer] Address 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
--- OUTSIDE RECORDS SUMMARY | 2024-12-01 15:08 | XMS_ITS | Clinical Summary ---
Author Organization [facility] Address [address] [place] [address] Care Team Providers Care Computerized Mill Recorder Name Role Phone Remington Man MD Primary Care Provider [phone] Fernie Argueta MD Unavailable [phone] Allergies Active Allergy Reactions Criticality Noted Date [...] Awaiting psychiatric evaluation. Patient initially cleared for [place] psych however was COVID positive. Chronic rhinitis 01/30/2021 Moderate depressed bipolar I disorder (CMS/HCC) 09/21/2019 Primary osteoarthritis of right knee 07/23/2018 Overview (07/23/2018): Added automatically from request for surgery [id number] Polyneuropathy 04/23/2017 Assessment & Plan (06/04/2021 4:00 [...] Vitamin D deficiency Schizoaffective schizophrenia ([facility]) 06/27/20 15 Overview (02/07/2017): Schizoaffective schizophrenia Assessment [...] Next Due Influenza, Trivalent, IM (MDV) 08/12/2015 Surgical History Surgery Date Site/Laterality Comments CHOLECYSTECTOMY Cholecystectomy GASTRIC BYPASS Gastric bypass OTHER SURGICAL HISTORY Right Arthroscopy ankle OPEN REDUCTION INTERNAL FIXATION ORIF HYSTERECTOMY FOOT SURGERY Left ABDOMINAL SURGERY gastric bypass 15 years ago EYE SURGERY lens in left eye FRACTURE SURGERY screws in placte in left knee GASTRECTOMY JOINT REPLACEMENT right knee REPLACEMENT TOTAL KNEE Right Medical History Medical History Date Comments Hx Other Medical hypothyrodism Hx Other Medical stroke? Hx Other Medical esophagitis Hx Other Medical schzophrenia Gastroesophageal reflux disease GERD Osteoarthritis Osteoarthritis Peptic ulcer Peptic ulcer dis ease Disorder of thyroid Thyroid dise ase Depression Depression Hypothyroidism Cerebrovascular accident (CVA) (HCC) Stroke 2002 with memory loss Bipolar disorder (HCC) Hyponatremia Family History Medical History Relation Name Comments Sensorineural hearing loss Father S ensorineural hearing loss; Depression Mother Mental illness Other 1 Family histor y of Mental illness; Osteoarthritis Other 2 Family histor y of Osteoarthritis; Stroke Other 3 Family history of Stroke; Kidney disease Other 4 Family histor y of Renal disease; Depression Sister 1 Depression Sister 2 Depression Sister 3 Relation Name Status Comments Father Mother Other 1 Other 2 Other 3 Other 4 Sister 1 Sister 2 Sister 3 Social History Tobacco Use Types Packs/Day Years [...] week 03/29/2023 How often do you attend chur ch or latter-day services? 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 Gender Identity Not on file Sexual Orientation Not on file Obstetrics History Last Filed Vital Signs Vital Sign Reading [...] 03/28/2023 1:44 PM CDT Plan of Treatment Health Maintenance Due Date Last Done Comments Fall Risk Assessment 1960 Hepatitis C Screening 1960 Pneumococcal vaccine 65+ (1 of 2 - PCV) 1964 DTaP/Tdap/Td Vaccine (1 - Tdap) 1969 Hepatitis B Screening 1976 Zoster Vaccine (1 of 2) 2008 Breast Cancer Screening-Mammogram 05/21/2015 014 Osteoporosis Screening-Bone Density Scan 05/21/2016 05/21/2014 Depression Screening 06/02/2022 06/02/2021, 09/15/2019, 09/14/2019 Well Visit 65+ 2023 Influenza Vaccine (#1) 2024 08/12/2015 Colon Cancer Screening-Colonoscopy 03/14/20262015 Colon Cancer Screening-CT Colonography Discontinued 03/14/2016 Colon Cancer Screening-DNA Stool Discontinued 03/14/20 16 Colon Cancer Screening-FIT Discontinued 03/14/2016 Colon Cancer Screening-Sigmoidoscopy Discontinued 03/04 Medical Devices Implanted Type Area Benefits Processor Device Identifier Shelf Expiration Date Model / Serial / Lot Optetrak Logic Stem Extension Straight, Femoral And Tibial, Cemented Implanted:Qty: 1 on 08/19/2018 by Gage Hernadez MD at [facility] Other - see comments Right: Knee [employer]ech [id number] 06/18/2023 [id number] 5 / [id number] / Optetrak 3 Peg Advanced Patella Cemented, Thickness 8.2mm Implanted:Qty: 1 on 08/19/2018 by Gage Hernadez MD at [facility] Patella Right: Knee [employer] [id number] 07/03/2023 200-07-32 / [id number] / Cc Stem Extension Retain Screw Implanted:Qty: 1 on 08/19/2018 by Gage Hernadez MD at [facility] Screw Right: Knee [employer]ech [id number] / / [employer] [id number] Restrictor Femur Kit Preparation Sterile - [id number] Implanted:Qty: 1 on 08/19/2018 by Gage Hernadez MD at [facility] Right: Knee [employer] 02/01/2023 [id number] / / [id number] Description:Cement restricto r Exactech [id number] Truliant Knee 4f/4t Tray Tibial Sterile Latex Free - [id number] - [id number] Implanted:Qty: 1 on 08/19/2018 by Gage Hernadez MD at [facility] Right: Knee [employer]ech 12/31/2027-404 0 / [id number] / Exactech [id number] - [id number] - [id number] Implanted:Qty: 1 on 08/19/2018 by Gage Hernadez MD at [facility] Right: Knee [employer]ech 04/02/2028- 0 / [id number] / Exactech [id number] Truliant H9 Mm Knee 4 Insert Tibial Sterile - [id number] - [id number] Implanted:Qty: 1 on 08/19/2018 by Gage Hernadez MD at [facility] Right: Knee [employer]ech 02/18/2026-400 9 / [id number] / [employer] [id number] Palacos R+G Cement 40gm Bone - [id number] Implanted:Qty: 3 on 08/19/2018 by Gage Hernadez MD at [facility] Right: Knee [employer] 06/03/2021 [id number] / / [id number] Description:C[employer]Bus Palacos R+G Procedures Procedure Name Priority Date/Time [...] AM CDT DEXA Bone Density Axial ??Acc#: ??[id number] DATE OF EXAM: ??May 21 2014 CLINICAL [...] - 02/27/2017 DEXA Bone Density Axial Acc#: [id number] DATE OF EXAM: May 21 2014 CLINICAL [...] 1:59 PM CDT Screening Mamm Bi ??Acc#: ??[id number] DATE OF EXAM: ??May 21 2014 CLINICAL HISTORY: Screening mammogram. Performed by: [facility] RESULT: A four view screening mammogram was [...] Procedure Note Provider, MD Janis - 02/27/2017 Screening Mamm Bi Acc#: [id number] DATE OF EXAM: May 21 2014 CLINICAL HISTORY: Screening mammogram. Performed by: [facility] RESULT: A four view screening mammogram was [...] Read on: May 21 201410:03A Transcribed by: alka On: May 21 2014 1:46P Approved Electronically by: CRISTÓBAL SANTILLAN M.D. 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
[2024-12-01 19:41] LABS: Mean Corpuscular HGB Conc 32.6 g/dl (32-36); Mean Corpuscular Hemoglobin 30.1 pg (26-34); Mean Corpuscular Volume 92.5 fl (80-100); Mean Platelet Volume 9.7 fl (7.4-10.4); Platelet Count Result 289 k/mm3 (150-375); Red Blood Count 4.65 M/mm3 (4.2-5.4); White Blood Count 7.8 K/mm3 (4.5-10.0)
[2024-12-01 19:47] LABS: Add Urine Microscopic? YES; Appearance Urine Clear (Clear); Bacteria Urine None Seen /hpf; Bilirubin Urine Negative (Negative); Blood Urine Negative (Negative); Color Urine Yellow (Yellow); Glucose Urine UA Negative (Negative); Ketones Urine Negative (Negative); Leukocyte Esterase Ur Trace LEU/UL (Negative); Nitrate Urine Negative (Negative); Non Pathogenic Casts 0-2; Protein Urine Negative (Negative); RBC Urine 0-2 /hpf (0-2); Specific Grav Ur 1.004 (1.001-1.035); Squamous Epithelial Cell Urine None Seen /hpf (Few); Urobilinogen Urine 0.2 mg/dL (<2.0); WBC Urine 0-5 /hpf (0-3)
[2024-12-01 20:22] LABS: Alanine Aminotransferase 31 U/L (6-35); Alkaline Phosphatase 102 U/L (38-126); Anion Gap 7 mmol/L (4-12); Aspartate Amino Transferase 34 U/L (14-36); Bilirubin,Total 0.6 mg/dL (0.2-1.3); Blood Urea Nitrogen 4 mg/dL (7-17); Calcium 8.7 mg/dL (8.4-10.2); Carbon Dioxide 34 mmol/L (22-30); Chloride 95 mmol/L (98-107); Estimated Glomerular Filt Rate > 60; Glucose 87 mg/dL (65-110); Potassium 2.7 mmol/L (3.4-5.0); Sodium 136 mmol/L (137-145)
[2024-12-01 20:53] LABS: Hemoglobin A1C 5.7 % (<5.7)
== END 2024-12-01 14:32 | disposition home or self-care (01) ==
LOC: ANHBWCLAB 14:33
PROVIDERS: PCP Nurse Practitioner Adult Health; Visit Provider Nurse Practitioner Adult Health
DX: R42 Dizziness and giddiness (principal); E03.9 Hypothyroidism, unspecified; D64.9 Anemia, unspecified; R79.89 Other specified abnormal findings of blood chemistry; Z79.899 Other long term (current) drug therapy
CPT/HCPCS: 36415; 80053; 81001; 82306; 82607; 83036; 84443; 85027

== ENCOUNTER 2024-12-02 10:24 | Outpatient (CLI) | payer MEDICARE, SELFPAY ==
--- OUTSIDE RECORDS SUMMARY | 2024-12-02 11:20 | XMS_ITS | Encounter Summary ---
Author Organization [employer] Address 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
--- OUTSIDE RECORDS SUMMARY | 2024-12-02 11:20 | XMS_ITS | Referral Summary ---
Author Organization [facility] Address [address] [place] [address] Care Team Providers Care Transitional Care Liaison Name Role Phone Remington Man MD Primary Care Provider [phone] Fernie Argueta MD Unavailable [phone] Allergies Active Allergy Reactions Criticality Noted Date [...] Awaiting psychiatric evaluation. Patient initially cleared for [place] psych however was COVID positive. Chronic rhinitis 01/30/2021 Moderate depressed bipolar I disorder (CMS/HCC) 09/21/2019 Primary osteoarthritis of right knee 07/23/2018 Overview (07/23/2018): Added automatically from request for surgery [id number] Polyneuropathy 04/23/2017 Assessment & Plan (06/04/2021 4:00 [...] Overview (02/07/2017): Vitamin D deficiency Schizoaffective schizophrenia ([facility] 06/27/20 15 Overview (02/07/2017): Schizoaffective schizophrenia Assessment [...] week 03/29/2023 How often do you attend [facility] or mandaen services? 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 Gender Identity Not on file Sexual Orientation [...] on file Medical Devices Implanted Type Area Stem Setter Device Identifier Shelf Expiration Date Model / Serial / Lot Optetrak Logic Stem Extension Straight, Femoral And Tibial, Cemented Implanted:Qty: 1 on 08/19/2018 by Gage Hernadez MD at [facility] Other - see comments Right: Knee [employer]ech C1776 06/18/2023 [id number] 5 / [id number] / Optetrak 3 Peg Advanced Patella Cemented, Thickness 8.2mm Implanted:Qty: 1 on 08/19/2018 by Gage Hernadez MD at [facility] Patella Right: Knee [employer]ech C1776 07/03/2023 200-07-32 / [id number] / Cc Stem Extension Retain Screw Implanted:Qty: 1 on 08/19/2018 by Gage Hernadez MD at [facility] Screw Right: Knee [employer]ech [id number] / / [employer] [id number] Restrictor Femur Kit Preparation Sterile - [id number] Implanted:Qty: 1 on 08/19/2018 by Gage Hernadez MD at [facility] Right: Knee [employer] 02/01/2023 [id number] / / [id number] Description:Cement restricto r Exactech [id number] Truliant Knee 4f/4t Tray Tibial Sterile Latex Free - [id number] - [id number] Implanted:Qty: 1 on 08/19/2018 by Gage Hernadez MD at [facility] Right: Knee [employer] 12/31/202786-433-40-404 0 / [id number] / Exactech [id number] - [id number] - [id number] Implanted:Qty: 1 on 08/19/2018 by Gage Hernadez MD at [facility] Right: Knee [employer] 04/02/2028-034 0 / [id number] / Exactech [id number] Truliant H9 Mm Knee 4 Insert Tibial Sterile - [id number] - [id number] Implanted:Qty: 1 on 08/19/2018 by Gage Hernadez MD at [facility] Right: Knee [employer]ech 02/18/2026-400 9 / [id number] / [employer] [id number] Palacos R+G Cement 40gm Bone - [id number] Implanted:Qty: 3 on 08/19/2018 by Gage Hernadez MD at [facility] Right: Knee [employer] 06/03/2021 [id number] / / [id number] Description:CC video Palacos R+G Procedures Procedure Name Priority Date/Time [...] AM CDT DEXA Bone Density Axial ??Acc#: ??[id number] DATE OF EXAM: ??May 21 2014 CLINICAL [...] - 02/27/2017 DEXA Bone Density Axial Acc#: [id number] DATE OF EXAM: May 21 2014 CLINICAL [...] 1:59 PM CDT Screening Mamm Bi ??Acc#: ??[id number] DATE OF EXAM: ??May 21 2014 CLINICAL HISTORY: Screening mammogram. Performed by: [facility] RESULT: A four view screening [...] MD - 02/27/2017 Screening Mamm Bi Acc#: [id number] DATE OF EXAM: May 21 2014 CLINICAL HISTORY: Screening mammogram. Performed by: [facility] RESULT: A four view screening [...] Read on: May 21 201410:03A Transcribed by: [facility] On: May 21 2014 1:46P Approved Electronically by: CRISTÓBAL SANTILLAN M.D. on: May 21 20141:59P Ordering DR: JULIAN TURCIOS Attending DR: SOL JONES us Historical Provider IMG MAMMO PROCEDURES Kori l Result from Last 3 Months or Most Recently Relevant to Health Maintenance Insurance MEDICARE [employer] [place] COMPLETE [place] MEDICARE [employer] HU[employer] CHOICE MEDICARE PPO MEDICARE COMMERCIAL GENERIC [place] [address] Advance Directives For more information, please contact: [phone] Documents on File Type Date Recorded Patient Billing Department Supervisor Expl anation ADVANCE DIRECTIVE 09/30/2018 9:03 AM [...] 12:36 PM 08/20/2018 4:51 PM Care Teams Transitional Care Liaison Relationship Specialty Start Date End Date Remington Man MD PCP - General Family Practice 02/06/23 Fernie Argueta MD [address] [place] [address] [address] Consulting Physician Cardiovascular Disease 03/30/23
--- OUTSIDE RECORDS SUMMARY | 2024-12-02 11:20 | XMS_ITS | Clinical Summary ---
Author Organization [facility] Address [address] [place] [address] Care Team Providers Care Mud Logger Name Role Phone Remington Man MD Primary Care Provider [phone] Jesica García CERTIFIED NURSES AIDE, TICKER MAINTAINER Unavailable [phone] Ellie Tao CERTIFIED NURSES AIDE, TICKER MAINTAINER Unavailable Allergies Active Allergy Reactions Criticality Noted [...] Active Active Problems No known active problems Social History Tobacco Use Types Packs/Day Years [...] Description 05/03/2025 2:00 PM CDT Office Visit [facility] - Cardiology [facility] [address] [place] [address] Jesica García, CERTIFIED NURSES AIDE, TICKER MAINTAINER [address] [facility], [address] [place] [address] Health Maintenance Due Date Last Done Comments [...] DIAGNOSTIC, VIA GUAIAC STAT 10/24/2023 9:45 AM CHARGE HISTOTECHNOLOGIST from Last 3 Months or Most Recently Relevant to Health Maintenance Results * Stool Occult Blood - Diagnostic (10/24/2023 9:45 AM CHARGE HISTOTECHNOLOGIST) OCCULT BLOOD DIAG, GI BLEED Negative Negative 10/24/2023 10:01 AM CHARGE HISTOTECHNOLOGIST [facility] Stool Non-Phlebotomy Collection / Unknown 10/24/2023 9:45 AM CHARGE HISTOTECHNOLOGIST 10/24/2023 9:58 AM CHARGE HISTOTECHNOLOGIST us Dean Mcgregor MD BODY FLUIDS & STOOLS ORDER CARMENCITA Final Result [facility] [address] [place] [address] from Last 3 Months or Most Recently Relevant to Health Maintenance Insurance MEDICARE [facility] GENERIC Care Teams Mud Logger Relationship Specialty Start Date End Date Remington Man MD [address] [place] [id number] PCP - General Family Medicine 08/24/23 Jesica García APRN, TICKER MAINTAINER [address] [facility], [address] [place] [address] Nurse Practitioner Cardiology 10/30/23 Ellie Tao APRN, TICKER MAINTAINER [address] [place] [address] Nurse Practitioner Advanced Practice Nurse 04/02/24
--- OUTSIDE RECORDS SUMMARY | 2024-12-02 11:20 | XMS_ITS | Clinical Summary ---
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
--- OUTSIDE RECORDS SUMMARY | 2024-12-02 11:20 | XMS_ITS | Encounter Summary ---
Author Organization [facility] Address 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
--- OUTSIDE RECORDS SUMMARY | 2024-12-02 11:20 | XMS_ITS | Clinical Summary ---
Author Organization [facility] Address [address] [place] [address] Care Team Providers Care Planner Internship Name Role Phone Remington Man MD Primary Care Provider [phone] Fernie Argueta MD Unavailable [phone] Allergies Active Allergy Reactions Criticality Noted Date [...] Awaiting psychiatric evaluation. Patient initially cleared for [place] psych however was COVID positive. Chronic rhinitis 01/30/2021 Moderate depressed bipolar I disorder (CMS/HCC) 09/21/2019 Primary osteoarthritis of right knee 07/23/2018 Overview (07/23/2018): Added automatically from request for surgery [id number] Polyneuropathy 04/23/2017 Assessment & Plan (06/04/2021 4:00 [...] Overview (02/07/2017): Vitamin D deficiency Schizoaffective schizophrenia ([facility]) 06/27/20 15 Overview (02/07/2017): Schizoaffective schizophrenia Assessment [...] often do you attend chur ch or sabianism services? 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 Gender Identity Not on file Sexual Orientation [...] Discontinued 03/04 Medical Devices Implanted Type Area Video Game Engineer Device Identifier Shelf Expiration Date Model / Serial / Lot Optetrak Logic Stem Extension Straight, Femoral And Tibial, Cemented Implanted:Qty: 1 on 08/19/2018 by Gage Hernadez MD at [facility] Other - see comments Right: Knee Exactech [id number] 06/18/2023 31-227-19-142 5 / [id number] / Optetrak 3 Peg Advanced Patella Cemented, Thickness 8.2mm Implanted:Qty: 1 on 08/19/2018 by Gage Hernadez MD at [facility] Patella Right: Knee Exactech [id number] 07/03/2023 200-07-32 / [id number] / Cc Stem Extension Retain Screw Implanted:Qty: 1 on 08/19/2018 by Gage Hernadez MD at [facility] Screw Right: Knee Exactech [id number] / / Depuy Orthopaed[employer] Inc [id number] Restrictor Femur Kit Preparation Sterile - [id number] Implanted:Qty: 1 on 08/19/2018 by Gage Hernadez MD at [facility] Right: Knee [employer]uy [employer]opaed[employer] Inc 02/01/2023 [id number] / / [id number] Description:Cement restricto r Exactech 054-86-4417 Truliant Knee 4f/4t Tray Tibial Sterile Latex Free - [id number] - [id number] Implanted:Qty: 1 on 08/19/2018 by Gage Hernadez MD at [facility] Right: Knee Exactech 12/31/2027-404 0 / [id number] / Exactech 060-31-8140 - [id number] - [id number] Implanted:Qty: 1 on 08/19/2018 by Gage Hernadez MD at [facility] Right: Knee Exactech 04/02/2028- 0 / [id number] / Exactech [id number] Truliant H9 Mm Knee 4 Insert Tibial Sterile - [id number] - [id number] Implanted:Qty: 1 on 08/19/2018 by Gage Hernadez MD at [facility] Right: Knee Exactech 02/18/2026-400 9 / [id number] / Letty [employer] Inc [id number] Palacos R+G Cement 40gm Bone - [id number] Implanted:Qty: 3 on 08/19/2018 by Gage Hernadez MD at [facility] Right: Knee [employer] 06/03/2021 [id number] / / [id number] Description:[employer] Palacos R+G Procedures Procedure Name Priority Date/Time [...] AM CDT DEXA Bone Density Axial ??Acc#: ??[id number] DATE OF EXAM: ??May 21 2014 CLINICAL [...] - 02/27/2017 DEXA Bone Density Axial Acc#: [id number] DATE OF EXAM: May 21 2014 CLINICAL [...] 1:59 PM CDT Screening Mamm Bi ??Acc#: ??[id number] DATE OF EXAM: ??May 21 2014 CLINICAL HISTORY: Screening mammogram. Performed by: [facility] RESULT: A four view screening mammogram [...] May 21 2014 ??1:46P Approved Electronically by: ??CRISTÓBLA SANTILLAN M.D. ??on: ??May 21 2014 1:59P Ordering DR: JULIAN TURCIOS Attending DR: SOL JONES Procedure Note Provider, MD Janis - 02/27/2017 Screening Mamm Bi Acc#: [id number] DATE OF EXAM: May 21 2014 CLINICAL HISTORY: Screening mammogram. Performed by: [facility] RESULT: A four view screening mammogram [...] Recently Relevant to Health Maintenance Insurance MEDICARE [facility] MERIDIAN COMPLETE MEDICARE [place] MEDICARE [facility] Address: [address] [address] [place] [address] IDPR HUMANA CHOICE MEDICARE PPO MEDICARE COMMERCIAL GENERIC WORKERS [place] [address] Advance Directives For more information, please contact: [phone] Documents on File Type Date Recorded Patient Jacquard Fixer Expl anation ADVANCE DIRECTIVE 09/30/2018 9:03 AM [...] 12:36 PM 08/20/2018 4:51 PM Care Teams Planner Internship Relationship Specialty Start Date End Date Remington Man MD PCP - General Family Practice 02/06/23 Fernie Argueta MD [address] [place] [address] [address] Consulting Physician Cardiovascular Disease 03/30/23
--- OUTSIDE RECORDS SUMMARY | 2024-12-02 11:20 | XMS_ITS | Continuity of Care Document ---
Author Organization [employer] [facility] Address [address] [facility] [address] [place] [address] Phone Care Team Providers Care Sausage Inspector Name Role Phone Sherlyn Jack OD Unavailable Unavailable Allergies, Adverse Reactions, Alerts Substance Reaction Status Criticality No Known Allergies Active No Inform ation Medications Medication Instructions Dosage Effective Dates (start - stop) Status Comments Zyrtec 10 mg tablet take 1 tablet by ora l route every day 10 MG - Active Multi Vitamin BUCCAL CAPSULE - Active zolpidem 10 mg tablet take 1 tablet by o ral route every day at bedtime 10 MG - Active trazodone 150 mg tablet take 1 tablet by oral route 3 times every day 150 MG - Active ziprasidone 40 mg capsule take 1 capsule by oral route 2 times every day with food 40 MG - Active Latuda 60 mg tablet take 1 tablet by ora l route every day with food (at least 350 calories) 60 MG - Active Tirosint 100 mcg capsule take 1 capsule by oral route every day 100 MCG - Active propranolol 20 mg tablet take 1 tablet by oral route 3 times every day 20 MG - Active pantoprazole 40 mg tablet,delayed release take 1 tablet by oral route every day 40 MG - Active Procedures Procedure Date No [...] Diagnoses Date Provider Providers Copied on Encounter [facility], [address] [place] [address] [address], [place], [place], [id number], [place] tel:[phone] [place] No Information 0 Marcie OD Sherlyn. [address] [place] [address] [address], [address], [place], [place], [id number], [place]. tel:[phone] [facility], [address] [place] [address] [address], [place], [place], [id number], tel:[phone] SEC [place] Professional 1 month s/p PCIOL (NEAR) (chief complaint) Post op visit 0 Sammy Stahl. [address] [facility], [address], [place], [place], [id number], [place]. tel:[phone] Referring Provider: Karson Prater OD, [employer] [address] [place] [address], [address]. tel:[phone] [facility], [address] [place] [address] [address], [place], [place], [id number], [place] tel:[phone] [place] Professional Post-Op (chief complaint) Post op visit 0 No Information Referring Provider: Karson Prater OD, [employer] [address] [place], [address]. tel:[phone] [facility], [address] [place] [address] [address], [place], [place], [id number], tel:[phone] [place] Professional Post-Op (chief complaint) Post op visit 0 No Information Referring Provider: Karson Prater OD, [facility] [address] [place] [address], [address]. tel:[phone] [facility], [address] [place] [address] [address], [place], [place], [id number], [place] tel: [facility] [place] No Information 0 Sammy Stahl. [address] [facility], [address], [place], [place], [id number], [place]. tel:[phone] Referring Provider: Karson Prater OD, [facility] [address] [place] [address], [address]. tel:[phone] [facility], [address] [place] [address] [address], [place], [place], [id number], [place] tel:[phone] SEC [place] PANDA Professional No Information 0 Sammy Stahl. [address], [facility] [[email or web address] [place], [place], [address], [place]. tel:[phone] Referring Provider: Karson Prater OD, [facility] [address] [place] [address], [address]. tel:[phone] Office/outpa tient Visit, [facility], [address] [place] [address] [address], [place], [place], [address], [place] tel:[phone] SEC [place] PANDA Professional Cataract evaluation (chief complaint) Pseudophakia of left eyeAge-relate d nuclear cataract, right eyeOther secondary cataract, left eyePunctate keratitis, bilateralPing uecula, bilateral 0 Sammy Stahl. [address], [address], [place], [place], [address], [place]. tel:[phone] Referring Provider: Karson Prater OD, [facility] [address] [place] [address], [address]. tel:[phone] [facility], [address] [place] [address] [address], [place], [place], [id number], [place] tel:[phone] SEC [place] FARZAD Professional No Information 0 Sammy Stahl. [address] [facility], [address], [place], [place], [address], [place]. tel:[phone] Family History Family Member Type Diagnosis Age At Onset Sister Problem Diabetes mellitus Payers Payer name Insurance type Covered democrat ID Authoriza tion(s) No Information Social History [...]
[2024-12-02 19:46] LABS: Potassium 2.9 mmol/L (3.4-5.0)
== END 2024-12-02 10:25 | disposition home or self-care (01) ==
PROVIDERS: PCP Nurse Practitioner Adult Health; Visit Provider Nurse Practitioner Adult Health
DX: E87.6 Hypokalemia (principal)
CPT/HCPCS: 36415; 84132

== ENCOUNTER 2024-12-10 11:15 | Outpatient (CLI) | payer MEDICARE, SELFPAY ==
--- OUTSIDE RECORDS SUMMARY | 2024-12-10 11:42 | XMS_ITS | Referral Summary ---
Author Organization [facility] Address [address] [place] [address] Care Team Providers Care Music Store Manager Name Role Phone Remington Man MD Primary Care Provider [phone] Fernie Argueta MD Unavailable [phone] Allergies Active Allergy Reactions Criticality Noted Date [...] Awaiting psychiatric evaluation. Patient initially cleared for [place] psych however was COVID positive. Chronic rhinitis 01/30/2021 Moderate depressed bipolar I disorder (CMS/HCC) 09/21/2019 Primary osteoarthritis of right knee 07/23/2018 Overview (07/23/2018): Added automatically from request for surgery [id number] Polyneuropathy 04/23/2017 Assessment & Plan (06/04/2021 4:00 [...] Overview (02/07/2017): Vitamin D deficiency Schizoaffective schizophrenia ([facility]) 06/27/20 15 Overview (02/07/2017): Schizoaffective schizophrenia Assessment [...] week 03/29/2023 How often do you attend [facility] or alevism services? 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 Gender Identity Not on file Sexual Orientation Not on file Last Filed Vital Signs Vital Sign Reading Time Taken Comments Blood Pressure 118/72 03/30/2023 7:38 AM CDT Pulse 76 03/30/2023 8:00 AM CDT Temperature 36.1 C (96.9 F) 03/30/2023 7:38 AM CDT Respiratory Rate 16 03/30/2023 7:38 AM CDT Oxygen Saturation 99% 03/30/2023 7:38 AM CDT Inhaled Oxygen Concentration - - Weight 87 kg (191 lb 12.8 oz) 03/28/2023 1:44 PM CDT Height 162.6 cm (5' 4 ) 03/28/2023 1:44 PM CDT Body Mass Index 32.92 03/28/2023 1:44 PM CDT Plan of Treatment Not on file Medical Devices Implanted Type Area Stock Roller Device Identifier Shelf Expiration Date Model / Serial / Lot Optetrak Logic Stem Extension Straight, Femoral And Tibial, Cemented Implanted:Qty: 1 on 08/19/2018 by Gage Hernadez MD at [facility] Other - see comments Right: Knee Exactech C1776 06/18/2023 86-383-59-142 5 / [id number] / Optetrak 3 Peg Advanced Patella Cemented, Thickness 8.2mm Implanted:Qty: 1 on 08/19/2018 by Gage Hernadez MD at [facility] Patella Right: Knee Exactech C1776 07/03/2023 200-07-32 / [id number] / Cc Stem Extension Retain Screw Implanted:Qty: 1 on 08/19/2018 by Gage Hernadez MD at [facility] Screw Right: Knee Exactech [id number] / / Depuy Orthopaedics Inc [id number] Restrictor Femur Kit Preparation Sterile - [id number] Implanted:Qty: 1 on 08/19/2018 by Gage Hernadez MD at [facility] Right: Knee [employer] 02/01/2023 [id number] / / [id number] Description:Cement restricto r Exactech 039-26-8903 Truliant Knee 4f/4t Tray Tibial Sterile Latex Free - [id number] - [id number] Implanted:Qty: 1 on 08/19/2018 by Gage Hernadez MD at [facility] Right: Knee Exactech 12/31/202780-778-77-404 0 / [id number] / Exactech 373-99-4742 - [id number] - [id number] Implanted:Qty: 1 on 08/19/2018 by Gage Hernadez MD at [facility] Right: Knee Exactech 04/02/2028-034 0 / [id number] / Exactech 632-26-4166 Truliant H9 Mm Knee 4 Insert Tibial Sterile - [id number] - [id number] Implanted:Qty: 1 on 08/19/2018 by Gage Hernadez MD at [facility] Right: Knee Exactech 02/18/202656-792-50-400 9 / [id number] / Letty [employer] Inc [id number] Palacos R+G Cement 40gm Bone - [id number] Implanted:Qty: 3 on 08/19/2018 by Gage Hernadez MD at [facility] Right: Knee [employer] 06/03/2021 [id number] / / [id number] Description:[employer] Palacos R+G Procedures Procedure Name Priority Date/Time [...] Anatomical Region Laterality Modality Body N/A Radiographic Ihllary ging 05/21/2014 10:1 3 AM CDT Narrative 05/22/2014 9:31 AM CDT DEXA Bone Density Axial Acc#: [id number] DATE OF EXAM: May 21 2014 CLINICAL HISTORY: Chronic back pain. Screening for osteoporosis. Menopause at age 41. Hysterectomy. RESULT: DXA LEFT HIP RESULTS SUMMARY: BMD (g/cm'b2) T-score Z-score Neck 0.649 -1.8 -0.7 Total 0.717 -1.8 -1.1 DXA L-SPINE RESULTS SUMMARY: BMD (g/cm'b2) T-score Z-score L1 1.035 0.4 1.4 L2 1.088 0.5 1.6 L3 1.113 0.3 1.4 L4 1.267 1.9 3.1 Total 1.131 0.8 1.9 IMPRESSION: 1. LEFT HIP T-SCORE -1.8; OSTEOPENIA. 2. LUMBAR SPINE T-SCORE +0.8; NORMAL. COMMENT: W.H.O. defines the T-score of between -1 and -2.5 as osteopenia, the level at which there may be an increased risk of developing osteoporosis and fractures in the future. Osteoporosis is defined as T-score lower than -2.5 (significantly increased risk of fracture due to osteoporosis). T-score is a comparison to peak bone mineral density of young adult reference population. Z-score is a comparison to bone mineral density of sex and age group population. Interpreting Physician: DR RAZ BA M.D. Read on: May 21 2014 12:15P Transcribed by: buddy On: May 21 2014 1:15P Approved Electronically by: JESENIA Vasquez, DR CRANDALL on: May 22 2014 9:31A Ordering DR: JULIAN TURCIOS Attending DR: SOL JONES Procedure Note Provider, MD Janis - 02/27/2017 DEXA Bone Density Axial Acc#: [id number] DATE OF EXAM: May 21 2014 CLINICAL [...] 05/21/2014 1:59 PM CDT Screening Mamm Bi Acc#: [id number] DATE OF EXAM: May 21 2014 CLINICAL HISTORY: Screening mammogram. Performed by: [facility] RESULT: A four view screening mammogram was performed and is compared with a prior study from 02/02/09. The breast tissue is almost entirely fatty (less than 25% glandular). A nodular density in the left subareolar region is stable. Little change since the prior mammogram is noted. No new dominant mass, architectural distortion or suspicious calcifications are seen. Digital technology was employed plus computer-aided detection software (R2) was utilized in interpretation of these images. This facility utilizes a reminder system to notify patients of yearly mammograms. IMPRESSION: NO SUSPICIOUS FINDINGS TO INDICATE MALIGNANCY. BI-RADS CATEGORY 2 - BENIGN FINDINGS Interpreting Physician: CRISTÓBAL SANTILLAN M.D. Read on: May 21 2014 10:03A Transcribed by: terry On: May 21 2014 1:46P Approved Electronically by: CRISTÓBAL SANTILLAN M.D. on: May 21 2014 1:59P Ordering DR: JULIAN TURCIOS Attending DR: SOL JONES Procedure Note Provider, MD Janis - 02/27/2017 Screening Mamm Bi Acc#: [id number] DATE OF EXAM: May 21 2014 CLINICAL HISTORY: Screening mammogram. Performed by: [facility] RESULT: A four view screening mammogram was [...] Recently Relevant to Health Maintenance Insurance MEDICARE [facility] MER[place]IAN COMPLETE MEDICARE [place] MEDICARE [facility] HUMANA CHOICE MEDICARE PPO MEDICARE COMMERCIAL GENERIC WORKERS COMPENSATION GENERIC Advance Directives For more information, please contact: [phone] Documents on File Type Date Recorded Patient Maintenance Truck Driver Expl anation ADVANCE DIRECTIVE 09/30/2018 9:03 AM [...] 12:36 PM 08/20/2018 4:51 PM Care Teams Music Store Manager Relationship Specialty Start Date End Date Remington Man MD PCP - General Family Practice 02/06/23 Fernie Argueta MD [address] [place] [address] DR WANG [address] [place] [address] Consulting Physician Cardiovascular Disease 03/30/23
--- OUTSIDE RECORDS SUMMARY | 2024-12-10 11:42 | XMS_ITS | Clinical Summary ---
Author Organization [facility] Address [address] [place] [address] Care Team Providers Care Mailing Section Clerk Name Role Phone Remington Man MD Primary Care Provider [phone] Fernie Argueta MD Unavailable Allergies Active Allergy Reactions Criticality Noted [...] Awaiting psychiatric evaluation. Patient initially cleared for [place] psych however was COVID positive. Chronic rhinitis 01/30/2021 Moderate depressed bipolar I disorder (CMS/HCC) 09/21/2019 Primary osteoarthritis of right knee 07/23/2018 Overview (07/23/2018): Added automatically from request for surgery [id number] Polyneuropathy 04/23/2017 Assessment & Plan (06/04/2021 4:00 [...] Overview (02/07/2017): Vitamin D deficiency Schizoaffective schizophrenia ([facility]) 06/27/20 15 Overview (02/07/2017): Schizoaffective schizophrenia Assessment [...] often do you attend chur ch or sikh services? 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 Gender Identity Not on file Sexual Orientation [...] 03/14/2016 Colon Cancer Screening-DNA Stool Discontinued 03/14/20 Colon Cancer Screening-FIT Discontinued 03/14/2016 Colon Cancer Screening-Sigmoidoscopy Discontinued 03/04 Medical Devices Implanted Type Area Justice Professor Device Identifier Shelf Expiration Date Model / Serial / Lot Optetrak Logic Stem Extension Straight, Femoral And Tibial, Cemented Implanted:Qty: 1 on 08/19/2018 by Gage Hernadez MD at [facility] Other - see comments Right: Knee Exactech C1776 06/18/2023 01-825-19-142 5 / [id number] / Optetrak 3 Peg Advanced Patella Cemented, Thickness 8.2mm Implanted:Qty: 1 on 08/19/2018 by Gage Hernadez MD at [facility] Patella Right: Knee Exactech C1776 07/03/2023 200-07-32 / [id number] / Cc Stem Extension Retain Screw Implanted:Qty: 1 on 08/19/2018 by Gage Hernadez MD at [facility] Screw Right: Knee Exactech [id number] / / Depuy Orthopaed[employer] Inc [id number] Restrictor Femur Kit Preparation Sterile - [id number] Implanted:Qty: 1 on 08/19/2018 by Gage Hernadez MD at [facility] Right: Knee [employer] 02/01/2023 [id number] / / [id number] Description:Cement restricto r Exactech 559-75-1524 Truliant Knee 4f/4t Tray Tibial Sterile Latex Free - [id number] - [id number] Implanted:Qty: 1 on 08/19/2018 by Gage Hernadez MD at [facility] Right: Knee Exactech 12/31/202760-214-75-404 0 / [id number] / Exactech 268-63-9568 - [id number] - [id number] Implanted:Qty: 1 on 08/19/2018 by Gage Hernadez MD at [facility] Right: Knee Exactech 04/02/2028-034 0 / [id number] / Exactech 55-145-66130-52-9600 Truliant H9 Mm Knee 4 Insert Tibial Sterile - [id number] - [id number] Implanted:Qty: 1 on 08/19/2018 by Gage Hernadez MD at [facility] Right: Knee [employer]ech 02/18/2026-400 9 / [id number] / [employer] [id number] Palacos R+G Cement 40gm Bone - [id number] Implanted:Qty: 3 on 08/19/2018 by Gage Hernadez MD at [facility] Right: Knee [employer] 06/03/2021 [id number] / / [id number] Description:[employer] Palacos R+G Procedures Procedure Name Priority Date/Time [...] AM CDT DEXA Bone Density Axial Acc#: [id number] DATE OF EXAM: May 21 2014 CLINICAL [...] - 02/27/2017 DEXA Bone Density Axial Acc#: [id number] DATE OF EXAM: May 21 2014 CLINICAL [...] 1:59 PM CDT Screening Mamm Bi Acc#: [id number] DATE OF EXAM: May 21 2014 CLINICAL HISTORY: Screening mammogram. Performed by: [facility] RESULT: A four view screening mammogram [...] on: May 21 2014 10:03A Transcribed by: [facility] On: May 21 2014 1:46P Approved Electronically by: CRISTÓBAL SANTILLAN M.D. on: May 21 2014 1:59P Ordering DR: JULIAN TURCIOS Attending DR: SOL JONES Procedure Note Provider, MD Janis - 02/27/2017 Screening Mamm Bi Acc#: [id number] DATE OF EXAM: May 21 2014 CLINICAL HISTORY: Screening mammogram. Performed by: [facility] RESULT: A four view screening mammogram [...] was utilized in interpretation of these images. [facility]. IMPRESSION: NO SUSPICIOUS FINDINGS TO INDICATE MALIGNANCY. BI-RADS CATEGORY 2 -BENIGN FINDINGS Interpreting Physician: CRISTÓBAL SANTILLAN M.D. Read on: May 21 201410:03A Transcribed by: [facility] On: May 21 2014 1:46P Approved Electronically by: CRISTÓBAL SANTILLAN M.D. on: May 21 20141:59P Ordering DR: JULIAN TURCIOS Attending DR: SOL JONES us Historical Provider MD [facility] MAMMO PROCEDURES Kori l Result from Last 3 Months or Most Recently Relevant to Health Maintenance Insurance MEDICARE [facility] MERIDIAN COMPLETE MEDICARE [place] MEDICARE [facility] Address: [address] [address] [place] [address] [place]MANA CHOICE MEDICARE PPO MEDICARE COMMERCIAL GENERIC WORKERS COMPENSATION GENERIC Advance Directives For more information, please contact: [phone] Documents on File Type Date Recorded Patient Senior Product Integrity Engineer Expl anation ADVANCE DIRECTIVE 09/30/2018 9:03 AM [...] 12:36 PM 08/20/2018 4:51 PM Care Teams Mailing Section Clerk Relationship Specialty Start Date End Date Remington Man MD PCP - General Family Practice 02/06/23 Fernie Argueta MD [address] [place] [address] [place] [address] Consulting Physician Cardiovascular Disease 03/30/23
--- OUTSIDE RECORDS SUMMARY | 2024-12-10 11:42 | XMS_ITS | Encounter Summary ---
Author Organization [employer] Address 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
--- OUTSIDE RECORDS SUMMARY | 2024-12-10 11:42 | XMS_ITS | Clinical Summary ---
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
--- OUTSIDE RECORDS SUMMARY | 2024-12-10 11:42 | XMS_ITS | Continuity of Care Document ---
Author Organization [facility] [employer] [facility] Address [address] [facility] [address] [place] [address] Phone Care Team Providers Care Detective Youth Bureau Name Role Phone Sherlyn Jack OD Unavailable [...] Diagnoses Date Provider Providers Copied on Encounter [facility], [address] [place] [address] [address], [place], [place], [id number], [place] tel:[phone] [place] No Information 0 Marcie OD Sherlyn. [address] [place] [address] [address], [address], [place], [place], [address], [place]. tel:[phone] [facility], [address] [place] [address] [address], [place], [place], [address], tel:[phone] [place] Professional 1 month s/p PCIOL (NEAR) (chief complaint) Post op visit 0 Sammy Stahl. [address] [facility], [address], [place], [place], [address], [place]. tel:[phone] Referring Provider: Karson Prater OD, [facility] [address] [place] [address], [address]. tel:[phone] [facility], [address] [place] [address] [address], [place], [place], [address], [place] tel:[phone] [place] Professional Post-Op (chief complaint) Post op visit 0 No Information Referring Provider: Karson Prater OD, [facility] [address] [place], [address]. tel:[phone] [facility], [address] [place] [address] [address], [place], [place], [address], tel:[phone] [place] Professional Post-Op (chief complaint) Post op visit 0 No Information Referring Provider: Karson Prater OD, [facility] [address] [place] [address], [address]. tel:[phone] [facility], [address] [place] [address] [address], [place], [place], [address], [place] tel: [facility] No Information 0 Sammy Stahl. [address], [address], [place], [place], [address], [place]. tel:[phone] Referring Provider: Karson Prater OD, [facility] [address] [place] [address], [address]. tel:[phone] [facility], [address] [place] [address] [address], [place], [place], [address], [place] tel:[phone] SEC [place] PANDA Professional No Information 0 Sammy Stahl. [address], [facility] [place], [address], [place]. tel:[phone] Referring Provider: Karson Prater OD, [facility] [address] [place] [address], [address]. tel:[phone] Office/outpa tient Visit, [facility], [address] [place] [address] [address], [place], [place], [address], [place] tel:[phone] SEC [place] PANDA Professional Cataract evaluation (chief complaint) Pseudophakia of left eyeAge-relate d nuclear cataract, right eyeOther secondary cataract, left eyePunctate keratitis, bilateralPing uecula, bilateral 0 Sammy Stahl. [address], [address], [place], [place], [address], [place]. tel:[phone] Referring Provider: Karson Prater OD, [facility] [address] [place] [address], [address]. tel:[phone] [facility], [address] [place] [address] [address], [place], [place], [address], [place] tel:[phone] SEC [place] FARZAD Professional No Information 0 Sammy Stahl. [address] [facility], [address], [place], [place], [address], [place]. tel:[phone] Family History Family Member Type Diagnosis Age At Onset Sister Problem Diabetes mellitus Payers Payer name Insurance type Covered alliance party ID Authoriza tion(s) No Information Social [...]
--- OUTSIDE RECORDS SUMMARY | 2024-12-10 11:42 | XMS_ITS | Encounter Summary ---
Author Organization [employer] Address 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
--- OUTSIDE RECORDS SUMMARY | 2024-12-10 11:42 | XMS_ITS | Clinical Summary ---
Author Organization [facility] Address [address] [place] [address] Care Team Providers Care Precision Layout Worker Name Role Phone Remington Man MD Primary Care Provider Jesica García WIRE HARNESS DESIGN ENGINEER, FISHER NET Unavailable [phone] Ellie Tao WIRE HARNESS DESIGN ENGINEER, FISHER NET Unavailable Allergies Active Allergy Reactions Criticality Noted [...] 90 08/31/2024 1:27 PM CDT Temperature 36.3 C (97.3 F) 08/31/2024 1:27 PM CDT Respiratory Rate 16 08/31/2024 1:27 PM CDT [...] Office Visit [facility] [address] [place] [address] Jesica García APRN, FISHER NET [address] [facility], [address] [place] [address] Health Maintenance Due Date Last Done Comments [...] DIAGNOSTIC, VIA GUAIAC STAT 10/24/2023 9:45 AM VICE PRESIDENT OF COMMUNICATIONS from Last 3 Months or Most Recently Relevant to Health Maintenance Results * Stool Occult Blood - Diagnostic (10/24/2023 9:45 AM VICE PRESIDENT OF COMMUNICATIONS) OCCULT BLOOD DIAG, GI BLEED Negative Negative 10/24/2023 10:01 AM VICE PRESIDENT OF COMMUNICATIONS [facility] Stool Non-Phlebotomy Collection / Unknown 10/24/2023 9:45 AM VICE PRESIDENT OF COMMUNICATIONS 10/24/2023 9:58 AM VICE PRESIDENT OF COMMUNICATIONS us Dean Mcgregor MD BODY FLUIDS & STOOLS ORDER CARMENCITA Final Result [facility] [address] [place] [address] from Last 3 Months or Most Recently Relevant to Health Maintenance Insurance MEDICARE COMMERCIAL GENERIC GENERIC Care Teams Precision Layout Worker Relationship Specialty Start Date End Date Remington Man MD [address] [place] [address] PCP - General Family Medicine 08/24/23 Jesica García APRN, FISHER NET [address] [facility], [address] [place] [address] Nurse Practitioner Cardiology 10/30/23 Ellie Tao APRN, FISHER NET [address] [place] [address] Nurse Practitioner Advanced Practice Nurse 04/02/24
[2024-12-10 20:25] LABS: Potassium 4.3 mmol/L (3.4-5.0)
== END 2024-12-10 11:16 | disposition home or self-care (01) ==
PROVIDERS: PCP Nurse Practitioner Adult Health; Visit Provider Nurse Practitioner Adult Health
DX: E87.6 Hypokalemia (principal)
CPT/HCPCS: 36415; 84132

== ENCOUNTER 2025-02-02 08:16 | Outpatient (CLI) | payer MEDICARE, SELFPAY ==
--- NOTE | ~2025-02-02 | XR_ITS ---
Right ankle Technique: AP, oblique, and lateral views were obtained. Clinical History: Pain Findings: No acute fracture or dislocation is seen. Prior calcaneal ORIF. Osseous alignment is anatom ic. Ankle mortise and other visualized joint spaces are preserved. Soft tissues are otherwise unrema rkable. Impression: No acute abnormality. Evidence of prior calcaneal surgery. Reviewed, dictated and finalized at location . Impression: No acute abnormality. Evidence of prior calcaneal surgery.
--- NOTE | ~2025-02-02 | XR_ITS ---
XR knee RT 3V 02/02/2025 08:37 Indication: Right knee pain Procedure: 4 views right knee Comparison: 04/08/2023 Findings: There is a right total knee arthroplasty. No acute fracture or traumatic malalignment. Pros thesis well seated. No significant soft tissue abnormality. Impression: 1: No acute bone or joint abnormality. Reviewed, dictated and finalized at location A. Impression: 1: No acute bone or joint abnormality.
--- OUTSIDE RECORDS SUMMARY | 2025-02-02 08:22 | XMS_ITS | Clinical Summary ---
Author Organization [employer] Address [address] [facility] Attn: [place] [address] Care Team Providers Care Pathology Specialist Name Role Phone Unavailable Primary Care Provider Unavailabl e Social History Tobacco Use Types Packs/Day Years Used Date Smoking Tobacco: Never Assessed Comments Unknown Sex and Gender Information Value Date Recorded Sex Assigned at Not on file Legal Sex Female 3:40 AM GRIZZLY WORKER Gender Identity Not on file Sexual Orientation Not on file Plan of Treatment Health Maintenance Due Date Last Done Comments DTAP/TDAP/TD VACCINES (1 - Tdap) 1977 BREAST CANCER SCREENING 1998 COLORECTAL SCREENING 2003 Colorectal Cancer Screening 2003 FIT-DNA Q 3 years 2003 FIT/FOBT Q 1 year 2003 Flex Sig/CT Colonography Q 5 years 2003 PNEUMOCOCCAL VACCINE 50+ YEARS (1 of 1 - PCV) 07/11/20 08 ZOSTER VACCINE (1 of 2) 2008 OSTEOPOROSIS SCREENING 2023 INFLUENZA VACCINE (#1) 2024 RSV VACCINE (60+ or ) (1 - 1-dose 75+ series) 2033
--- OUTSIDE RECORDS SUMMARY | 2025-02-02 08:22 | XMS_ITS | Clinical Summary ---
Author Organization [facility] Address [address] [place] [address] Care Team Providers Care Fryer Line Helper Name Role Phone Remington Man MD Primary Care Provider [phone] Fernie Argueta MD Unavailable [phone] Allergies Active Allergy Reactions Criticality Noted Date [...] Noted Date Diagnosed Date Moderate protein-calorie malnutrition 03/29/2023 Atrial fibrillation with RVR 03/29/2023 New onset atrial fibrillation 03/29/2023 New onset a-fib 03/29/2023 Near syncope 03/28/2023 Suicidal ideations 06/03/2021 Assessment & Plan (06/04/2021 3:59 AM CDT): Patient presented to the hospital for suicidal ideation. Patient currently on suicide precautions. She denies any suicidal ideations at this time. Awaiting psychiatric evaluation. Patient initially cleared for [facility] however was COVID positive. Chronic rhinitis 01/30/2021 Moderate depressed bipolar I disorder 09/21/2019 Primary osteoarthritis of right knee 07/23/2018 Overview (07/23/2018): Added automatically from request for surgery [id number] Polyneuropathy 04/23/2017 Assessment & Plan (06/04/2021 4:00 [...] Overview (02/07/2017): Vitamin D deficiency Schizoaffective schizophrenia ([facility]) 06/27/20 15 Overview (02/07/2017): Schizoaffective schizophrenia Assessment [...] Overview (02/07/2017): Cerebrovascular accident Malignant neoplastic disease 06/01/2014 Overview (02/07/2017): Malignant neoplastic disease Dilutional hyponatremia [...] bone 12/27/2014 08/01/2019 Headache(784.0) 12/27/2014 08/01/2019 Immunizations Immunization Administration Dates Next Due Influenza, Trivalent, IM [...] often do you attend chur ch or rastafari services? 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 Gender Identity Not on file Sexual Orientation [...] Due Date Last Done Comments Hepatitis C Screening 1958 DTaP/Tdap/Td Vaccine (1 - Tdap) 1969 Hepatitis B Screening 1976 Pneumococcal vaccine 65+ (1 of 2 - PCV) 1977 Zoster Vaccine (1 of 2) 2008 Breast Cancer Screening-Mammogram 05/21/2015 014 Osteoporosis Screening-Bone Density Scan 05/21/2016 05/21/2014 Depression Screening 06/02/2022 06/02/2021, 01/13/2020, 09/15/2019, Additional history exists Well Visit 65+ 2023 Fall Risk Assessment 03/30/2024 03/30/2023 Influenza Vaccine (#1) 2024 08/12/2015 Colon Cancer Screening-Colonoscopy 03/14/2026 03/14/2016 Colon Cancer Screening-CT Colonography Discontinued 03/14/2016 Colon Cancer Screening-DNA Stool Discontinued 03/14/20 16 Colon Cancer Screening-FIT Discontinued 03/14/2016 Colon Cancer Screening-Sigmoidoscopy Discontinued 03/14/2016 Medical Devices Implanted Type Area Digital Strategist Device Identifier Shelf Expiration Date Model / Serial / Lot Optetrak Logic Stem Extension Straight, Femoral And Tibial, Cemented Implanted:Qty: 1 on 08/19/2018 by Gage Hernadez MD at [facility] Other - see comments Right: Knee [employer]ech [id number] 06/18/2023 21-606-19-142 5 / [id number] / Optetrak 3 Peg Advanced Patella Cemented, Thickness 8.2mm Implanted:Qty: 1 on 08/19/2018 by Gage Hernadez MD at [facility] Patella Right: Knee [employer] [id number] 07/03/2023 200-07-32 / [id number] / Cc Stem Extension Retain Screw Implanted:Qty: 1 on 08/19/2018 by Gage Hernadez MD at [facility] Screw Right: Knee [employer]ech [id number] / / [employer] [id number] Restrictor Femur Kit Preparation Sterile - [id number] Implanted:Qty: 1 on 08/19/2018 by Gage Hernadez MD at [facility] Right: Knee [employer] 02/01/2023 [id number] / / [id number] Description:Cement restricto r Exactech [id number] Truliant Knee 4f/4t Tray Tibial Sterile Latex Free - [id number] - [id number] Implanted:Qty: 1 on 08/19/2018 by Gage Hernadez MD at [facility] Right: Knee [employer] 12/31/2027-404 0 / [id number] / Exactech 536-18-7926 - [id number] - [id number] Implanted:Qty: 1 on 08/19/2018 by Gage Hernadez MD at [facility] Right: Knee [employer] 04/02/2028-034 0 / [id number] / Exactech [id number] Truliant H9 Mm Knee 4 Insert Tibial Sterile - [id number] - [id number] Implanted:Qty: 1 on 08/19/2018 by Gage Hernadez MD at [facility] Right: Knee [employer] 02/18/2026-400 9 / [id number] / [employer] [id number] Palacos R+G Cement 40gm Bone - [id number] Implanted:Qty: 3 on 08/19/2018 by Gage Hernadez MD at [facility] Right: Knee [employer] 06/03/2021 [id number] / / [id number] Description:[employer] Palacos R+G Procedures Procedure Name Priority Date/Time [...] AM CDT DEXA Bone Density Axial Acc#: [id number] DATE OF EXAM: May 21 2014 CLINICAL [...] - 02/27/2017 DEXA Bone Density Axial Acc#: [id number] DATE OF EXAM: May 21 2014 CLINICAL [...] 1:59 PM CDT Screening Mamm Bi Acc#: [id number] DATE OF EXAM: May 21 2014 CLINICAL [...] Janis - 02/27/2017 Screening Mamm Bi Acc#: [id number] DATE OF EXAM: May 21 2014 CLINICAL [...] was utilized in interpretation of these images. [facility] a reminder system to notify [...] Recently Relevant to Health Maintenance Insurance MEDICARE [facility]TE MEDICARE [place] MEDICARE IDPA HUMANA CHOICE MEDICARE PPO MEDICARE COMMERCIAL GENERIC WORKERS COMPENSATION GENERIC Advance Directives For more information, please contact: [phone] Documents on File Type Date Recorded Patient Agriculture Intern Expl anation ADVANCE DIRECTIVE 09/30/2018 9:03 AM [...] 12:36 PM 08/20/2018 4:51 PM Care Teams Fryer Line Helper Relationship Specialty Start Date End Date Remington Man MD PCP - General Family Practice 02/06/23 Fernie Argueta MD Consulting Physician Cardiovascular Disease 03/30/23
--- OUTSIDE RECORDS SUMMARY | 2025-02-02 08:22 | XMS_ITS | Continuity of Care Document ---
Author Organization [facility] Address [address] [facility] [address] [place] [address] Phone Care Team Providers Care Contact Lens Fitter Name Role Phone Sherlyn Jack OD Unavailable [...] Diagnoses Date Provider Providers Copied on Encounter [facility], [address] [place] [address] [address], [place], [place], [address], [place] tel:[phone] [place] No Information 0 Marcie OD Sherlyn. [address] [place] [address] [address], [place], [place], [address], [place]. tel:[phone] [facility], [address] [place] [address] [address], [place], [place], [address], tel:[phone] SEC [place] Professional 1 month s/p PCIOL (NEAR) (chief complaint) Post op visit 0 Sammy Stahl. [address] [facility], [address], [place], [place], [address], [place]. tel:[phone] Referring Provider: Karson Prater OD, [facility] [address] [place] [address], [address]. tel:[phone] [facility], [address] [place] [address] [address], [place], [place], [address], [place] tel:[phone] SEC [place] Professional Post-Op (chief complaint) Post op visit 0 No Information Referring Provider: Karson Prater OD, [facility] [address] [place], [address]. tel:[phone] [facility], [address] [place] [address] [address], [place], [place], [address], tel:[phone] SEC [place] Professional Post-Op (chief complaint) Post op visit 0 No Information Referring Provider: Karson Prater OD, [facility] [address] [place] [address], [address]. tel:[phone] [facility], [address] [place] [address] [address], [place], [place], [address], [place] tel: [facility] [place] No Information 0 Sammy Stahl. [address], [address], [place], [place], [address], [place]. tel:[phone] Referring Provider: Karson Prater OD, [facility] [address] [place] [address], [address]. tel:[phone] [facility], [address] [place] [address] [address], [place], [place], [address], [place] tel:[phone] SEC [place] PANDA Professional No Information 0 Sammy Stahl. [address], [facility] [place], [address], [place]. tel: Referring Provider: Karson Prater OD, [facility] [address] [place] [address], [address]. tel:[phone] Office/outpa tient Visit, [facility], [address] [place] [address] [address], [place], [place], [address], [place] tel:[phone] SEC [place] PANDA Professional Cataract evaluation (chief complaint) Pseudophakia of left eyeAge-relate d nuclear cataract, right eyeOther secondary cataract, left eyePunctate keratitis, bilateralPing uecula, bilateral 0 Sammy Stahl. [address], [address], [place], [place], [address], [place]. tel:[phone] Referring Provider: Karson Prater OD, [facility] [address] [place] [address], [address]. tel:[phone] [facility], [address] [place] [address] [address], [place], [place], [address], [place] tel:[phone] SEC [place] FARZAD Professional No Information 0 Sammy Stahl. [address] [facility], [address], [place], [place], [address], [place]. tel:[phone] Family History Family Member Type Diagnosis Age [...]
--- OUTSIDE RECORDS SUMMARY | 2025-02-02 08:22 | XMS_ITS | Encounter Summary ---
Author Organization [facility] Address 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
--- OUTSIDE RECORDS SUMMARY | 2025-02-02 08:22 | XMS_ITS | Clinical Summary ---
Author Organization [facility] Address [address] [place] [address] Care Team Providers Care Oyster Unloader Name Role Phone Remington Man MD Primary Care Provider [phone] Jesica García CONVENIENCE STORE CLERK, CRYSTAL REPORT DEVELOPER Unavailable [phone] Ellie Tao CONVENIENCE STORE CLERK, CRYSTAL REPORT DEVELOPER Unavailable Allergies Active Allergy Reactions Criticality Noted [...] Office Visit [facility] [address] [place] [address] Jesica García APRN, CRYSTAL REPORT DEVELOPER [address] [facility], [address] [place] [address] Health Maintenance Due Date Last Done Comments Hepatitis C Virus (HCV) Screening 1958 Mammogram 1958 TdaP Immunization 1958 Pneumococcal Immunization (5 0+ years) (1 of 2 - PCV) 1977 Colonoscopy 2003 Cologuard 2008 Zoster Immunization (1 of 2) 2008 DEXA Bone Density 05/21/2016 05/21/2014 Colorectal Cancer Screening 10/25/2023 Influenza Immunization (#1) 2024 08/12/2015 SARS-COV-2 Immunization ( season) 2024 Immunochemical Fecal [...] DIAGNOSTIC, VIA GUAIAC STAT 10/24/2023 9:45 AM VULCANIZER RUBBER PLATE from Last 3 Months or Most Recently Relevant to Health Maintenance Results * Stool Occult Blood - Diagnostic (10/24/2023 9:45 AM VULCANIZER RUBBER PLATE) OCCULT BLOOD DIAG, GI BLEED Negative Negative 10/24/2023 10:01 AM VULCANIZER RUBBER PLATE [facility] Stool Non-Phlebotomy Collection / Unknown 10/24/2023 9:45 AM VULCANIZER RUBBER PLATE 10/24/2023 9:58 AM VULCANIZER RUBBER PLATE us Dean Mcgregor MD BODY FLUIDS & STOOLS ORDER CARMENCITA Final Result [facility] [address] [place] [address] from Last 3 Months or Most Recently Relevant to Health Maintenance Insurance MEDICARE COMMERCIAL GENERIC GENERIC [facility] Care Teams Oyster Unloader Relationship Specialty Start Date End Date Remington Man MD [address] [place] [address] PCP - General Family Medicine 08/24/23 Jesica García APRN, CRYSTAL REPORT DEVELOPER #2 [facility] [address] [place] [address] Nurse Practitioner Cardiology 10/30/23 Ellie Tao APRN, CRYSTAL REPORT DEVELOPER [address] [place] [address] Nurse Practitioner Advanced Practice Nurse 04/02/24
--- OUTSIDE RECORDS SUMMARY | 2025-02-02 08:22 | XMS_ITS | Referral Summary ---
Author Organization [facility] Address [address] [place] [address] Care Team Providers Care Medical Examiner Name Role Phone Remington Man MD Primary Care Provider [phone] Fernie Argueta MD Unavailable [phone] Allergies Active Allergy Reactions Criticality Noted Date [...] Awaiting psychiatric evaluation. Patient initially cleared for [place] psych however was COVID positive. Chronic rhinitis 01/30/2021 Moderate depressed bipolar I disorder 09/21/2019 Primary osteoarthritis of right knee 07/23/2018 Overview (07/23/2018): Added automatically from request for surgery [id number] Polyneuropathy 04/23/2017 Assessment & Plan (06/04/2021 4:00 [...] Vitamin D deficiency Schizoaffective schizophrenia ([facility]) 06/27/20 15 Overview (02/07/2017): Schizoaffective [...] 03/29/2023 How often do you attend chur or muslim services? 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 TIRE BUILDER Gender Identity Not on file Sexual Orientation [...] on file Medical Devices Implanted Type Area Honest [employer] Member Device Identifier Shelf Expiration Date Model / Serial / Lot Optetrak Logic Stem Extension Straight, Femoral And Tibial, Cemented Implanted:Qty: 1 on 08/19/2018 by Gage Hernadez MD at [facility] Other - see comments Right: Knee Exactech [id number] 06/18/2023 [id number] / [id number] / Optetrak 3 Peg Advanced Patella Cemented, Thickness 8.2mm Implanted:Qty: 1 on 08/19/2018 by Gage Hernadez MD at [facility] Patella Right: Knee Exactech [id number] 07/03/2023 200-07-32 / [id number] / Cc Stem Extension Retain Screw Implanted:Qty: 1 on 08/19/2018 by Gage Hernadez MD at [facility] Screw Right: Knee Exactech [id number] / / [employer] [id number] Restrictor Femur Kit Preparation Sterile - [id number] Implanted:Qty: 1 on 08/19/2018 by Gage Hernadez MD at [facility] Right: Knee [employer] 02/01/2023 [id number] / / [id number] Description:Cement restricto r Exactech 253-57-8611 Truliant Knee 4f/4t Tray Tibial Sterile Latex Free - [id number] - [id number] Implanted:Qty: 1 on 08/19/2018 by Gage Hernadez MD at [facility] Right: Knee Exactech 12/31/202790-687-87-404 0 / [id number] / Exactech 469-90-9253 - [id number] - [id number] Implanted:Qty: 1 on 08/19/2018 by Gage Hernadez MD at [facility] Right: Knee Exactech 04/02/2028-034 0 / [id number] / Exactech [id number] Truliant H9 Mm Knee 4 Insert Tibial Sterile - [id number] - [id number] Implanted:Qty: 1 on 08/19/2018 by Gage Hernadez MD at [facility] Right: Knee Exactech 02/18/2026-400 9 / [id number] / [employer] [id number] Palacos R+G Cement 40gm Bone - [id number] Implanted:Qty: 3 on 08/19/2018 by Gage Hernadez MD at [facility] Right: Knee [employer] 06/03/2021 [id number] / / [id number] Description:[email or web address] Palacos R+G Procedures Procedure Name Priority [...] AM CDT DEXA Bone Density Axial Acc#: [id number] DATE OF EXAM: May 21 2014 CLINICAL [...] - 02/27/2017 DEXA Bone Density Axial Acc#: [id number] DATE OF EXAM: May 21 2014 CLINICAL [...] May 21 2014 1:15P Approved Electronically by: DR RAZ BA M.D. on: May 22 20149:31A Ordering DR: JULIAN TURCIOS Attending DR: SOL JONES us Historical Provider MD PAULSON DXA PROCEDURES Final Result * DIGITAL MAMMOGRAPHY (05/21/2014 10:03 AM CDT) Anatomical Region Laterality Modality Breast Mammography 05/21/2014 10:0 3 AM CDT Narrative 05/21/2014 1:59 PM CDT Screening Mamm Bi Acc#: [id number] DATE OF EXAM: May 21 2014 CLINICAL HISTORY: Screening mammogram. Performed by: [facility] RESULT: A four view screening mammogram [...] on: May 21 2014 10:03A Transcribed by: [facility] On: May 21 2014 1:46P Approved Electronically by: CRISTÓBAL SANTILLAN M.D. on: May 21 2014 1:59P Ordering DR: JULIAN TURCIOS Attending DR: SOL JONES Procedure Note Provider, MD Janis - 02/27/2017 Screening Mamm Bi Acc#: [id number] DATE OF EXAM: May 21 2014 CLINICAL HISTORY: Screening mammogram. Performed by: [facility] RESULT: A four view screening mammogram [...] was utilized in interpretation of these images. [facility] to notify patients of yearlymammograms. IMPRESSION: NO SUSPICIOUS FINDINGS TO INDICATE MALIGNANCY. BI-RADS CATEGORY 2 -BENIGN FINDINGS Interpreting Physician: CRISTÓBAL SANTILLAN M.D. Read on: May 21 201410:03A Transcribed by: terry On: May 21 2014 1:46P Approved Electronically by: CRISTÓBAL SANTILLAN M.D. on: May 21 20141:59P Ordering DR: JULIAN TURCIOS Attending DR: SOL JONES us Historical Provider MD PAULSON MAMMO PROCEDURES Kori l Result from Last 3 Months or Most Recently Relevant to Health Maintenance Insurance MEDICARE [facility] COMPLETE MEDICARE [place] MEDICARE [facility] HUMANA CHOICE MEDICARE PPO MEDICARE COMMERCIAL GENERIC WORKERS COMPENSATION GENERIC Advance Directives For more information, please contact: [phone] Documents on File Type Date Recorded Patient Agency Sales Development Associate Expl anation ADVANCE DIRECTIVE 09/30/2018 9:03 AM [...] 12:36 PM 08/20/2018 4:51 PM Care Teams Medical Examiner Relationship Specialty Start Date End Date Remington Man MD PCP - General Family Practice 02/06/23 Fernie Argueta MD Consulting Physician Cardiovascular Disease 03/30/23
--- OUTSIDE RECORDS SUMMARY | 2025-02-02 08:22 | XMS_ITS | Encounter Summary ---
Author Organization [employer] Address [address] [place] [address] Care Team Providers Care Research Assoc Name Role Phone Unavailable Primary Care Provider [...] on file Legal Sex Female 3:40 AM ASSISTANT STORE DIRECTOR Gender Identity Not on file Sexual Orientation Not on file documented as of this encounter Plan of Treatment Not on file documented as of this encounter Visit Diagnoses Diagnosis Unspecified persistent mental disorders due to conditions classified elsewhere- Primary documented in this encounter
== END 2025-02-02 08:17 | disposition home or self-care (01) ==
LOC: ANHBWCIMG 08:18
PROVIDERS: PCP Nurse Practitioner Adult Health; Visit Provider Nurse Practitioner Adult Health
DX: M25.561 Pain in right knee (principal); M25.571 Pain in right ankle and joints of right foot
CPT/HCPCS: 73562; 73610

== ENCOUNTER 2025-07-12 09:30 | Outpatient (CLI) | payer MEDICARE, MEDICAID, SELFPAY ==
--- OUTSIDE RECORDS SUMMARY | 2025-07-12 09:49 | XMS_ITS | Encounter Summary ---
Author Organization [facility] Address [address] [place] [address] Phone Care Team Providers Care Major Gifts Director Name Role Phone Remington Man MD Primary Care Provider Ellie Tao GRADES 1 6 TUTOR, WEIGHT ENGINEER Unavailable Jaylyn Sprague GRADES 1 6 TUTOR, WEIGHT ENGINEER Unavailable Encounter Details Date Type Department Care Team (Late st Contact Info) Description 06/15/2025 Results Follow-Up [facility] - Cardiology - [place] [address] [place] [address] Jaylyn Sprague, GRADES 1 6 TUTOR, WEIGHT ENGINEER [address] [place] [address] CMP (COMPREHENSIVE METABOLIC PANEL), CBC WITH AUTO DIFFERENTIAL Social History Tobacco Use Types Packs/Day Years Used Date Smoking Tobacco: Every Day Cigarettes Last attempted to quit: 12/20/2015 Smokeless Tobacco: Never Alcohol Use Standard Drinks/Week Comments No 0 (1 standard drink = 0.6 oz pur e alcohol) Sexually Active Control Partners Comments Not Currently Comments No Sex and Gender Information Value Date Recorded Sex Assigned at Not on file Legal Sex Female 11:31 PM CDT Gender Identity Not on file Sexual Orientation Not on file documented as of this encounter Plan of Treatment Upcoming Encounters Date Type Department Care Team (Late st Contact Info) Description 10/18/2025 1:30 PM MANAGER DATA WAREHOUSING Office Visit [facility] - Cardiology - [place] [address] [place] [phone] Jaylyn Sprague APRN, [address] [place] [phone] documented as of this encounter Visit Diagnoses Not on filedocumented in this encounter Care Teams Major Gifts Director Relationship Specialty Start Date End Date Remington Man MD PCP - General Family Medicine 08/24/23 Ellie Tao APRN, WEIGHT ENGINEER [address] [place] [address] Nurse Practitioner Advanced Practice Nurse 04/02/24 Jaylyn Sprague APRN, WEIGHT ENGINEER [address] [place] [phone] Nurse Practitioner Cardiology 05/05/25 documented as of this encounter
--- OUTSIDE RECORDS SUMMARY | 2025-07-12 09:49 | XMS_ITS | Clinical Summary ---
Author Organization [facility] Address [address] [place] [address] Care Team Providers Care Asbestos Surveyor Name Role Phone Remington Man MD Primary Care Provider [phone] Fernie Argueta MD Unavailable [phone] Allergies Active Allergy Reactions Criticality Noted Date [...] Awaiting psychiatric evaluation. Patient initially cleared for [place] psych however was COVID positive. Chronic rhinitis 01/30/2021 Moderate depressed bipolar I disorder 09/21/2019 Primary osteoarthritis of right knee 07/23/2018 Overview (07/23/2018): Added automatically from request for surgery [id number] Polyneuropathy 04/23/2017 Assessment & Plan (06/04/2021 4:00 [...] Overview (02/07/2017): Vitamin D deficiency Schizoaffective schizophrenia ([facility]) 06/27/20 15 Overview (02/07/2017): Schizoaffective [...] ase Depression Depression Hypothyroidism Cerebrovascular accident (CVA) ([facility]) Stroke 2002 with memory loss Bipolar disorder Hyponatremia Family History Medical History Relation Name [...] oz pur e alcohol) Social Connection and Isolation Panel Answer Date Recorded In a typical week, how many times do you talk on the phone with family, friends, or neighbors? More than three times a week 03/29/2023 How often do you get togethe r with friends or relatives? Twice a week 03/29/2023 How often do you attend chur or sikh services? More than 4 times per year 03/29/2023 Do you belong to any clubs o r organizations such as anabaptist groups, unions, fraternal or athletic groups, or [...] on file Legal Sex Female 7:19 PM PATHOLOGY SPECIALIST Gender Identity Not on file Sexual [...] 1:44 PM CDT Height 162.6 cm (5' 4) 03/28/2023 1:44 PM CDT Body Mass Index [...] Risk Assessment 03/30/2024 03/30/2023 Influenza Vaccine (#1) 2025 08/12/2015 Colon Cancer Screening-Colonoscopy 03/14/2026 03/14/2016 Colon Cancer Screening-CT Colonography Discontinued 03/14/2016 Colon Cancer Screening-DNA Stool Discontinued 03/14/20 Colon Cancer Screening-FIT Discontinued 03/14/2016 Colon Cancer Screening-Sigmoidoscopy Discontinued 03/14/2016 Medical Devices Implanted Type Area Technical Delivery Manager Device Identifier Shelf Expiration Date Model / Serial / Lot Optetrak Logic Stem Extension Straight, Femoral And Tibial, Cemented Implanted:Qty: 1 on 08/19/2018 by Gage Hernadez MD at [facility] Other - see comments Right: Knee Exactech [id number] 06/18/2023 [id number] / [id number] / Optetrak 3 Peg Advanced Patella Cemented, Thickness 8.2mm Implanted:Qty: 1 on 08/19/2018 by Gage Hernadez MD at [facility] Patella Right: Knee [employer]actech C1776 07/03/2023 200-07-32 / [id number] / Cc Stem Extension Retain Screw Implanted:Qty: 1 on 08/19/2018 by Gage Hernadez MD at [facility] Screw Right: Knee Exactech [id number] / / [employer] [id number] Restrictor Femur Kit Preparation Sterile - [id number] Implanted:Qty: 1 on 08/19/2018 by Gage Hernadez MD at [facility] Right: Knee [employer] 02/01/2023 [id number] / / [id number] Description:Cement restricto r Exactech [id number] Truliant Knee 4f/4t Tray Tibial Sterile Latex Free - [id number] - [id number] Implanted:Qty: 1 on 08/19/2018 by Gage Hernadez MD at [facility] Right: Knee Exactech 12/31/2027-404 0 / [id number] / Exactech 811-16-5030 - [id number] - [id number] Implanted:Qty: 1 on 08/19/2018 by Gage Hernadez MD at [facility] Right: Knee Exactech 04/02/2028-034 0 / [id number] / Exactech [id number] Truliant H9 Mm Knee 4 Insert Tibial Sterile - [id number] - [id number] Implanted:Qty: 1 on 08/19/2018 by Gage Hernadez MD at [facility] Right: Knee [employer]ech 02/18/202627-802-29-400 9 / [id number] / [employer] [id number] Palacos R+G Cement 40gm Bone - [id number] Implanted:Qty: 3 on 08/19/2018 by Gage Hernadez MD at [facility] Right: Knee [employer] 06/03/2021 [id number] / / [id number] Description:[email or web address] Palacos R+G Procedures Procedure Name Priority Date/Time [...] AM CDT DEXA Bone Density Axial Acc#: [id number] DATE OF EXAM: May 21 2014 CLINICAL [...] - 02/27/2017 DEXA Bone Density Axial Acc#: [id number] DATE OF EXAM: May 21 2014 CLINICAL [...] 1:59 PM CDT Screening Mamm Bi Acc#: [id number] DATE OF EXAM: May 21 2014 CLINICAL HISTORY: Screening mammogram. Performed by: [facility] RESULT: A four view screening mammogram [...] Janis - 02/27/2017 Screening Mamm Bi Acc#: [id number] DATE OF EXAM: May 21 2014 CLINICAL HISTORY: Screening mammogram. Performed by: [facility] RESULT: A four view screening mammogram [...] was utilized in interpretation of these images. [facility] [...] Recently Relevant to Health Maintenance Insurance MEDICARE [facility] COMPLETE MEDICARE [place] MEDICARE [facility] Address: [address] [address] [place] [address] [employer] HUMANA CHOICE MEDICARE O MEDICARE COMMERCIAL GENERIC WORKERS COMPENSATION GENERIC Advance Directives For more information, please contact: [phone] Documents on File Type Date Recorded Patient Construction Scheduler Expl anation ADVANCE DIRECTIVE 09/30/2018 9:03 AM [...] 12:36 PM 08/20/2018 4:51 PM Care Teams Asbestos Surveyor Relationship Specialty Start Date End Date Remington Man MD PCP - General Family Practice 02/06/23 Fernie Argueta MD Consulting Physician Cardiovascular Disease 03/30/23
--- OUTSIDE RECORDS SUMMARY | 2025-07-12 09:49 | XMS_ITS | Encounter Summary ---
Author Organization [employer] Address [address] [place] [address] Care Team Providers Care Senior Contract Specialist Name Role Phone Unavailable Primary Care [...] on file Legal Sex Female 3:40 AM QA AUDITOR Gender Identity Not on file Sexual Orientation Not on file documented as of this encounter Plan of Treatment Not on file documented as of this encounter Visit Diagnoses Diagnosis Unspecified persistent mental disorders due to conditions classified elsewhere- Primary documented in this encounter
--- OUTSIDE RECORDS SUMMARY | 2025-07-12 09:49 | XMS_ITS | Clinical Summary ---
Author Organization [facility] Address [address] [place] [address] Care Team Providers Care Home Care Nurse Name Role Phone Remington Man MD Primary Care Provider [phone] Ellie Tao APRN, BOILER HOUSE INSPECTOR Unavailable Jaylyn Sprague SACK SEWER MACHINE, BOILER HOUSE INSPECTOR Unavailable Allergies Active Allergy Reactions Criticality [...] Take 500 mg by mouth daily. Active montelukast (SINGULAIR) 10 MG Tablet Take 10 mg by mouth every evening. Active omeprazole (PRILOSEC) 40 MG CAPSULE DELAYED RELEASE Take 40 mg by mouth daily. Active levothyroxine (SYNTHROID) 100 MCG Tablet Take 50 mcg by mouth daily. Active Topiramate 50 MG Tablet Take 50 mg by mouth 2 times daily. Active temazepam (RESTORIL) 15 MG Capsule Take 30 mg by mouth nightly as needed for Sleep. Active B Complex-C (SUPER B COMPLEX PO) Take 1 Tablet by mouth daily. Active Multiple Vitamins-Minera ls (MULTIVITAMIN PO) Take 1 Tablet by mouth daily. Active Cyanocobalamin (B-12 PO) Take 1 Tablet by mouth daily. Active Calcium Citrate 200 MG Tablet Take 1 Tablet by mouth daily. Active Ranitidine HCl 150 MG Capsule Take 150 mg by mouth 2 times daily. Active dicyclomine (BENTYL) 20 MG Tablet Take 20 mg by mouth every 8 hours. Active methylPREDNISol one (MEDROL DOSPACK) 4 MG Tablet Therapy Pack See product package insert for dosing schedule 21 Tab 0 016 Active Additional Information Patient not taking.Reported on 05/03/2025 pantoprazole (PROTONIX) 40 MG Pack 40 mg by Per NG tube route daily. Active liothyronine (CYTOMEL) 5 MCG Tablet Take 5 mcg by mouth 2 times daily. Active diphenhydrAMINE (BENADRYL) 50 MG Capsule Take 50 mg by mouth nightly. Active doxepin (SINEQUAN) 50 MG Capsule 023 Active ferrous sulfate 324 MG Tablet Delayed Response Take 65 mg by mouth. Active FLUoxetine (PROZAC) 40 MG Capsule 023 Active gabapentin (NEURONTIN) 600 MG Tablet Take 600 mg by mouth. 023 Active hydrOXYzine (ATARAX) 25 MG Tablet Take 25 mg by mouth. 023 Active HYDROcodone-shiva taminophen (NORCO) 5-325 MG TabletIndicatio ns:2-part displaced fracture of surgical neck of left humerus Take 1 Tablet by mouth every 6 hours as needed for Moderate or more severe pain. 20 Tablet 023 Active Additional Information Patient not taking.Reported on 05/03/2025 Invega Sustenna 234 MG/1.5ML Suspension Prefilled Syringe every 30 days. 023 Active metoprolol Succinate (TOPROL-XL) 25 MG TABLET SR 24 HR Take 1 Tablet by mouth daily. 90 Tablet 3 024 Active Thiamine HCl (VITAMIN B-1 PO) Take by mouth. Activ e buPROPion SR (WELLBUTRIN SR) 100 MG TABLET SR 12 HR 100 mg. Active busPIRone (BUSPAR) 5 MG Tablet 5 mg. 10/21/2 024 Active Eliquis 5 MG Tablet TAKE 1 TABLET BY MOUTH TWO (2) TIMES DAILY. INDICATIONS: ATRIAL FIBRILLATION 60 Tablet 4 025 Active aspirin-dypyrid amole (AGGRENOX) 25-200 MG CAPSULE SR 12 HR Take 1 Capsule by mouth daily. 2024 Discontinued( ed List Clean Up) aspirin 81 MG Chewable Tablet Take 81 mg by mouth daily. 2024 Discontinued( ed List Clean Up) Eliquis 5 MG TabletIndicatio ns:Atrial Fibrillation Take 1 Tablet by mouth 2 times daily. Indications: Atrial Fibrillation 60 Tablet 025 2024 Discontinued Active Problems No known active problems Encounters Date Type Department Care Team Description 07/08/2025 Refill [facility] Cardiology [facility] [address] [place] [address] Jaylyn Sprague APRN, CNP Medication Refill 06/15/2025 Results Follow-Up [facility] [address] [place] [address] Jaylyn Sprague APRN, CNP CMP (COMPREHENSIVE METABOLIC PANEL), CBC WITH AUTO DIFFERENTIAL 06/12/2025 Travel 06/11/2025 Refill [facility] [address] [place] [address] Jaylyn Sprague APRN, CNP Medication Refill 05/03/2025 2:00 PM CDT Office Visit [facility] [address] [place] [address] Jaylyn Sprague APRN, CNP Atrial fibrillation, unspecified type (HCC) (Primary Dx); Hypertension, unspecified type Discharge Disposition: Discharged to home or Selfcare 05/03/2025 Travel 04/12/2025 Refill [facility] [address] [place] [address] Jaylyn Sprague APRN, CNP Medication Refill from Last 3 Months Social History Tobacco [...] Sign Reading Time Taken Comments Blood Pressure 100/60 05/03/2025 2:02 PM CDT Pulse 115 05/03/2025 2:02 PM CDT Temperature 36.7 C (98.1 F) 05/03/2025 2:02 PM CDT Respiratory Rate 16 05/03/2025 2:02 PM CDT Oxygen Saturation 97% 05/03/2025 2:02 PM CDT Inhaled Oxygen Concentration - - Weight 99.6 kg (219 lb 9.6 oz) 05/03/2025 2:02 P M CDT Height 162.6 cm (5' 4) 05/03/2025 2:02 PM CDT Body Mass Index 37.69 05/03/2025 2:02 PM CDT Plan of Treatment Upcoming Encounters Date Type Department Care Team (Late st Contact Info) Description 10/18/2025 1:30 PM HEAD BONE GRINDER Office Visit [facility] [place] [address] [place] [address] Jaylyn Sprague APRN, BOILER HOUSE INSPECTOR [address] [place] [address] Health Maintenance Due Date Last Done Comments Hepatitis C Virus (HCV) Screening 1960 Mammogram 1958 TdaP Immunization 1958 Pneumococcal Immunization (5 0+ years) (1 of 2 - PCV) 1977 Cologuard 2003 Colonoscopy 2003 Zoster Immunization (1 of 2) 2008 DEXA Bone Density 05/21/2016 05/21/2014 Colorectal Cancer Screening 10/24/2024 Immunochemical Fecal Occult Blood 10/24/2024 023 Influenza Immunization (#1) 2025 08/12/2015 SARS-COV-2 Immunization ( season) 2025 Respiratory Syncytial Virus (RSV) Immunization (Adult) (1 - 1-dose 75+ series) 2033 Hepatitis B Immunization Aged Out No longer eligible based on patient's age to complete this topic Human Papillomavirus (HPV) Immunization Aged Out No longer eligible b ased on patient's age to complete this topic Meningococcal Immunization (ACWY) Aged Out No longer eligible based on patient's age to complete this topic Rotavirus Immunization Aged Out No lo nger eligible based on patient's age to complete this topic Procedures Procedure Name Priority Date/Time Associated Diagnosis Comments CBC WITH AUTO DIFFERENTIAL Routine 06/12/2025 8:47 AM CDT Medication management CMP (COMPREHENSIVE METABOLIC PANEL) Routine 06/12/2025 8:47 AM CDT Medication management COMPLETE BLOOD COUNT (CBC) WITH DIFF Routine 06/12/2025 8:47 AM CDT Medication management EKG 12 LEAD Routine 05/03/2025 1:09 PM CDT Atrial fibrillation, unspecified type (HCC) STOOL, OCCULT BLOOD, DIAGNOSTIC, VIA GUAIAC STAT 10/24/2023 9:45 AM HEAD BONE GRINDER from Last 3 Months or Most Recently Relevant to Health Maintenance Results * (ABNORMAL) CBC WITH AUTO DIFFERENTIAL (06/12/2025 8:47 AM CDT) WBC 5.55 4.00 - 12.00 10(3)/mcL 06/12/2025 10:06 AM CDT [facility] RBC 4.67 3.80 - 5.30 10(6)/mcL 06/12/2025 10:06 AM CDT [facility] HEMOGLOBIN (HGB) 13.9 12.0 - 15.8 g/dL 06/12/2025 10:06 AM CDT [facility] HEMATOCRIT (HCT) 42.7 36.0 - 47.0 % 06/12/2025 10:06 AM CDT [facility] MCV 91.4 82.0 - 96.0 fL 06/12/2025 10:06 AM CDT [facility] MCH 29.8 26.0 - 34.0 pg 06/12/2025 10:06 AM CDT [facility] MCHC 32.6 31.0 - 36.0 g/dL 06/12/2025 10:06 AM CDT [facility] PLATELET COUNT 263 140 - 440 10(3)/mcL 06/12/2025 10:06 AM CDT [facility] RDW 12.8 11.8 - 15.5 % 06/12[facility]25 [facility] MPV 10.9 9.7 - 12.4 fL 06/12/2025 10:06 AM CDT [facility] NEUTROPHILS 74.4(H) 47.0 - 73.0 % 06/12/2025 10:06 AM CDT [facility] LYMPHOCYTES 17.5(L) 18.0 - 42.0 % 06/12/2025 10:06 AM CDT [facility] MONOCYTES 6.1 4.0 - 12.0 % 06/12/2025 10:06 AM CDT [facility] EOSINOPHILS 0.9 0.0 - 5.0 % 06/12/2025 10:06 AM CDT [facility] BASOPHILS 0.7 0.0 - 1.0 % 06/12/2025 10:06 AM CDT [facility] IMMATURE GRANULOCYTE 0.4 0.0 - 0.4 % 06/12/2025 10:06 AM CDT [facility] Comment:Immature Granulocyte s includes Metamyelocytes, Myelocytes, and Promyelocytes. ABSOLUTE NEUTROPHILS 4.13 1.60 - 7.70 10(3)/mcL 06/12/2025 10:06 AM CDT [facility] ABSOLUTE LYMPHOCYTES 0.97(L) 1.30 - 3.20 10(3)/mcL 06/12/2025 10:06 AM CDT [facility] ABSOLUTE MONOCYTES 0.34 0.20 - 1.00 10(3)/mcL 06/12/2025 10:06 AM CDT [facility] ABSOLUTE EOSINOPHIL 0.05 0.00 - 0.40 10(3)/mcL 06/12/2025 10:06 AM CDT [facility] ABSOLUTE BASOPHILS 0.04 0.00 - 0.10 10(3)/mcL 06/12/2025 10:06 AM CDT [facility] ABSOLUTE IMMATURE GRANULOCYTE 0.02 0.00 - 0.03 10 (3) mcL. 06/12/2025 10:06 AM CDT [facility] NRBC PER 100 WBC 0 06/12/20 25 10:06 AM CDT [facility] Blood Venipuncture / Unknown 06/12/2025 8:47 AM CDT 06/12/2025 9:57 AM CDT us Jaylyn Sprague APRN, CNP HEMATOLOGY ORD ERABLES Final Result [facility] [address] [place] [address] * (ABNORMAL) CMP (COMPREHENSIVE METABOLIC PANEL) (06/12/2025 8:47 AM CDT) SODIUM 139 136 - 145 mmol/L 06/12/2025 10:24 AM CDT [facility] POTASSIUM 4.5 3.5 - 5.1 mmol/L 06/12/2025 10:24 AM CDT [facility] CHLORIDE 105 98 - 107 mmol/L 06/12/2025 10:24 AM CDT [facility] CO2, VENOUS 24 22 - 30 mmol/L 06/12/2025 10:24 AM CDT [facility] ANION GAP 14.5 <18.0 mmol/L 06/12/2025 10:24 AM CDT [facility] GLUCOSE 144(H) 70 - 99 mg/dL 06/12/2025 10:24 AM CDT [facility] BUN 9(L) 10 - 20 mg/dL 06/12/2025 10:24 AM [facility] CREATININE, BLOOD 1.01(H) 0.60 - 1.00 mg/dL 06/12/2025 10:24 AM CDT [facility] BUN/CREATININE RATIO 9(L) 12 - 20 ratio 06/12/2025 10:24 AM [facility] TOTAL PROTEIN 7.0 6.0 - 8.0 g/dL 06/12/2025 10:24 AM [facility] ALBUMIN 4.5 3.5 - 5.0 g/dL 06/12/2025 10:24 AM [facility] A/G RATIO 1.8 1.0 - 2.2 06/12/2025 10:24 AM [facility] CALCIUM 9.3 8.7 - 10.5 mg/dL 06/12/2025 10:24 AM [facility] T BILI 0.7 0.2 - 1.2 mg/dL 06/12/2025 10:24 AM [facility] SGOT (AST) 21 <43 U/L 06/12/2025 10:24 AM [facility] SGPT (ALT) 11 <56 U/L 06/12/2025 10:24 AM [facility] ALKALINE PHOSPHATASE 115 40 - 150 U/L 06/12/2025 10:24 AM [facility] IS THE PATIENT REQUIRED TO BE FASTING? No 06/12/2025 10:24 AM [facility] GFR, ESTIMATED >60 >=60 06/12/2025 10:24 AM [facility] Comment: Creatinine Clearance is the preferred criteria for selecting drug dose adjustments in renally impaired patients. The GFR is provided as additional pertinent clinical information. GFR is reported in mL/min/1.73 sq m. Calculation based on the Chronic Kidney Disease Epidemiology Collaboration (CKD- EPI) equation refit without adjustment for race. GFR, EST. >60 >=60 025 10:24 AM CDT [facility] GFR, EST. NONAFRICAN 55(L) >=60 06/12/2025 10:24 AM CDT [facility] Blood Venipuncture / Unknown 06/12/2025 8:47 AM CDT 06/12/2025 10:00 AM CDT Jaylyn Sprague APRN, CNP CHEMISTRY ORDE RABLES Final Result [facility] [address] [place] [address] * EKG 12 LEAD (05/03/2025 1:09 PM CDT) Ventricular Rate 99 BPM EXTERNAL EKG Atrial Rate 110 BPM EXTERNAL EKG QRS Duration 76 ms EXTERNAL EKG Q-T Duration 352 ms EXTERNAL EKG QTC CALCULATION 451 ms EXTERNAL EKG R [employer] [place] 34 degrees EXTERNAL EKG T [employer] [place] 49 degrees EXTERNAL EKG 05/03/2025 1:09 PM CDT Impressions EXTERNAL EKG - 05/12/2025 11:55 PM CDT Atrial fibrillation Abnormal ECG ~ Confirmed by Bria Dolye ([id number]) on 05/12/2025 11:55:32 PM Narrative Procedure Note Bria Doyle MD - 05/12/2025 IMPRESSION: Atrial fibrillation Abnormal ECG ~ Confirmed by Bria Doyle ([id number]) on 05/12/2025 11:55:32 PM Jaylyn Sprague APRN, ALESSANDRO IMG ECG ORDERA BLES Final Result EXTERNAL EKG * Stool Occult Blood - Diagnostic (10/24/2023 9:45 AM HEAD BONE GRINDER) OCCULT BLOOD DIAG Negative Negative 10/24/2023 10:01 AM HEAD BONE GRINDER [facility] Stool Non-Phlebotomy Collection / Unknown 10/24/2023 9:45 AM HEAD BONE GRINDER 10/24/2023 9:58 AM HEAD BONE GRINDER Dean Mcgregor MD BODY FLUIDS & STOOLS ORDER CARMENCITA Final Result [facility] [address] [place] [address] from Last 3 Months or Most Recently Relevant to Health Maintenance Insurance MEDICARE [employer] GENERIC GENERIC GENERIC Care Teams Home Care Nurse Relationship Specialty Start Date End Date Remington Man MD PCP - General Family Medicine 08/24/23 Ellie Tao APRN, BOILER HOUSE INSPECTOR [address] [place] [address] Nurse Practitioner Advanced Practice Nurse 04/02/24 Jaylyn Sprague APRN, BOILER HOUSE INSPECTOR [address] [place] [address] Nurse Practitioner Cardiology 05/05/25
--- OUTSIDE RECORDS SUMMARY | 2025-07-12 09:49 | XMS_ITS | Clinical Summary ---
Author Organization [employer] Address [address] [facility] Attn: [place] [address] Care Team Providers Care Bottling Line Operator Name Role Phone Unavailable Primary Care Provider Unavailabl e Social History Tobacco Use Types Packs/Day Years Used Date Smoking Tobacco: Never Assessed Comments Unknown Sex and Gender Information Value Date Recorded Sex Assigned at Not on file Legal Sex Female 3:40 AM MUSIC CRITIC Gender Identity Not on file Sexual Orientation [...] 2008 OSTEOPOROSIS SCREENING 2023 INFLUENZA VACCINE (#1) 2025 RSV VACCINE (60+ or ) (1 - 1-dose 75+ series) 2033
--- OUTSIDE RECORDS SUMMARY | 2025-07-12 09:49 | XMS_ITS | Encounter Summary ---
Author Organization [employer] Address [address] [place] [address] Care Team Providers Care Title Clerk Automobile Name Role Phone Unavailable Primary Care Provider Unavailabl e Encounter Details Date Type Department Care Team (Late st Contact Info) Description 01/02/2005 Outpatient Historical [facility] Haylie Whittington Social History Tobacco Use Types Packs/Day Years Used Date Smoking Tobacco: Never Assessed Comments Unknown Sex and Gender Information Value Date Recorded Sex Assigned at Not on file Legal Sex Female 3:40 AM PIPE FITTER WELDING Gender Identity Not on file Sexual Orientation Not on file documented as of this encounter Plan of Treatment Not on file documented as of this encounter Visit Diagnoses Not on filedocumented in this encounter
[2025-07-12 19:20] LABS: Iron 76 ug/dL (37-170)
[2025-07-12 19:30] LABS: Percent Iron Saturation 17 % (20-50)
[2025-07-12 19:56] LABS: Ferritin 12.10 ng/mL (11.1-264)
== END 2025-07-12 09:31 | disposition home or self-care (01) ==
PROVIDERS: PCP Nurse Practitioner Adult Health; Visit Provider Nurse Practitioner Adult Health
DX: D64.9 Anemia, unspecified (principal)
CPT/HCPCS: 36415; 82728; 83540; 83550

== ENCOUNTER 2025-08-11 08:01 | Outpatient (CLI) | payer OTHER, SELFPAY ==
[2025-08-11 19:31] LABS: Free T4 Free Thyroxine 1.21 ng/dL (0.78-2.19)
[2025-08-11 19:46] LABS: Thyroid Stimulating Hormone 2.770 uIU/mL (0.465-4.680)
== END 2025-08-11 08:02 | disposition home or self-care (01) ==
LOC: ANHBWCLAB 08:02
PROVIDERS: PCP Nurse Practitioner Adult Health; Visit Provider Nurse Practitioner Adult Health
DX: E03.9 Hypothyroidism, unspecified (principal)
CPT/HCPCS: 36415; 84439; 84443